=== PATIENT | male | born 1975 | race Hispanic/Latino ===

== ENCOUNTER 2017-09-15 13:40 | Emergency (ER) | payer BC, SELFPAY ==
--- OUTSIDE RECORDS SUMMARY | 2017-09-15 13:46 | XMS REPORT | Clinical Summary ---
:1975 Author Organization [facility] Address [address] [place] [address] Care Team Providers Name Role Phone Cherri Mehta DO Primary Care Provider Allergies No Known Allergies Current Medications Prescription Sig. Disp. Refills Start Date End Date Status metFORMIN (GLUCOPHAGE) Take 1 60 tablet 2 03/22/2017 Active 500 mg tablet (500 tabletIndications: Type mg total) 2 diabetes mellitus by mouth 2 without complication, (two) times without long-term a day with current use of insulin meals. lisinopril Take 1 90 tablet 2 03/22/2017 Active (PRINIVIL,ZESTRIL) 10 mg tablet (10 tabletIndications: mg total) Essential hypertension by mouth daily. metoprolol succinate XL Take 1 90 tablet 2 03/22/2017 Active (TOPROL-XL) 100 mg 24 hr tablet (100 tabletIndications: mg total) Essential hypertension by mouth daily. hydroCHLOROthiazide Take 1 90 tablet 2 03/22/2017 Active (HYDRODIURIL) 25 MG tablet (25 tabletIndications: mg total) Essential hypertension by mouth daily. fenofibrate (FENOGLIDE) Take 1 30 tablet 2 07/06/2017 Active 40 MG tabletIndications: tablet (40 Hypercholesteremia mg total) by mouth daily. lovastatin (MEVACOR) 20 Take 1 90 tablet 1 07/09/2017 Active MG tablet tablet (20 mg total) by mouth nightly. lisinopril Take 10 mg Discontinued (PRINIVIL,ZESTRIL) 10 mg by mouth 7 tablet daily. lovastatin (MEVACOR) 20 Take 20 mg Discontinued MG tablet by mouth 7 nightly. metFORMIN (GLUCOPHAGE) Take 500 mg Discontinued 500 mg tablet by mouth 2 7 (two) times a day with meals. hydroCHLOROthiazide Take 25 mg Discontinued (HYDRODIURIL) 25 MG by mouth 7 tablet daily. glipiZIDE (GLUCOTROL) 10 Take 10 mg Discontinued MG tablet by mouth 2 7 (two) times a day before meals. metoprolol succinate XL Take 100 mg Discontinued (TOPROL-XL) 100 mg 24 hr by mouth 7 tablet daily. lovastatin (MEVACOR) 20 Take 1 90 tablet 3 03/22/2017 Discontinued MG tabletIndications: tablet (20 7 Type 2 diabetes mellitus mg total) without complication, by mouth without long-term nightly. current use of insulin, Hypercholesteremia lovastatin (MEVACOR) 40 Take 1 90 tablet 1 03/28/2017 Discontinued MG tablet tablet (40 8 mg total) by mouth nightly. Active Problems Problem Noted Date Essential hypertension 06/29/2017 Type 2 diabetes mellitus without complication 03/22/2017 Hypercholesteremia 03/22/2017 Encounters Date Type Specialty Care Team Description 07/07/2017 Telephone Family Medicine Pac[place] Calvo 07/06/2017 Orders Only Family Medicine Cherri Mehta, Hypercholesteremia (Primary DO Dx) 07/06/2017 Orders Only Family Medicine Cherri Mehta, DO 06/29/2017 Lab Lab Cherri Mehta, Hypercholesteremia; DO Type 2 diabetes mellitus without complication, without long-term current use of insulin; Essential hypertension 06/29/2017 Office Visit Family Medicine Cherri Mehta, Type 2 diabetes mellitus without complication, without long-term current use of insulin ( Primary Dx); DO Hypercholesteremia; Essential hypertension 03/28/2017 Orders Only Family Medicine Cherri Mehta, DO 03/22/2017 Lab Lab Cherri Mehta, Type 2 diabetes mellitus without complication, without long-term current use of insulin; DO Essential hypertension; Hypercholesteremia 03/22/2017 Office Visit Family Medicine Cherri Mehta, Type 2 diabetes mellitus without complication, without long-term current use of insulin ( Primary Dx); DO Essential hypertension; Hypercholesteremia after 09/14/2016 Family History Medical History Relation Name Comments No Known Problems Father Hypertension Mother Relation Name Status Comments Father Alive Mother Alive Social History Tobacco Use Types Packs/Day Years Used Date Current Some Day Smoker Cigarettes Smokeless Tobacco: Never Used Comments: 1-2 cigs a month Alcohol Use Drinks/Week oz/Week Comments Yes pt goes through about a case of beer a month Sex Assigned at Date Recorded Not on file Last Filed Vital Signs Vital Sign Reading Time Taken Blood Pressure 136/88 06/29/2017 12:02 PM CDT Pulse 74 06/29/2017 12:02 PM CDT Temperature - - Respiratory Rate - - Oxygen Saturation 97% 06/29/2017 12:02 PM CDT Inhaled Oxygen Concentration - - Weight 101 kg (223 lb) 06/29/2017 12:02 PM CDT Height 165.1 cm (5' 5") 06/29/2017 12:02 PM CDT Body Mass Index 37.11 06/29/2017 12:02 PM CDT Plan of Treatment Date Type Specialty Care Team Description 10/28/2017 Office Visit Family Medicine Cherri Mehta DO [address] [place] [id number] Health Maintenance Due Date Last Done Comments INFLUENZA VACCINE 11/17/2017 DIABETIC FOOT EXAM 06/29/2018 06/29/2017, 06/29/2017 URINE MICROALBUMIN 06/29/2018 06/29/2017, 06/29/2017 DIABETIC RETINAL EYE EXAM 06/30/2019 06/29/2017, 06/29/2017 Procedures Procedure Name Priority Date/Time Associated Diagnosis Comments FUNDUS PHOTOS - OU Routine 06/29/2017 12:00 AM Results for this - BOTH EYES CDT procedure are in the results section. after 09/14/2016 Results Microalbumin / creatinine urine ratio (06/29/2017 12:50 PM) Component Value Ref Range Creatinine, urine, random 62.0 Not Estab. mg/dL Microalbumin, urine 3.2 Not Estab. ug/mL Microalbumin/creatinine ratio 5.2 0.0 - 30.0 mg/g creat Specimen Performing Laboratory Blood [facility] Narrative Performed at:01 - [facility] [id number] Armature Varnisher: Jimbo Seymour MD, Phone:[phone] Hemoglobin A1c (06/29/2017 12:50 PM)Only the most recent of2 resultswithin the time period is included. Component Value Ref Range Hemoglobin A1C 5.6 4.8 - 5.6 % Comment: Pre-diabetes: 5.7 - 6.4 Diabetes: >6.4 Glycemic control for adults with diabetes: <7.0 Specimen Performing Laboratory Blood [facility] Narrative Performed at:01 - [facility] [id number] Arm[employer] Varnisher: Jimbo Seymour MD, Phone:[phone] Lipid panel (06/29/2017 12:50 PM)Only the most recent of2 resultswithin the time period is included. Component Value Ref Range Cholesterol 207 (H) 100 - 199 mg/dL Triglycerides 519 (H) 0 - 149 mg/dL HDL cholesterol 37 (L) >39 mg/dL VLDL cholesterol polina Comment 5 - 40 mg/dL Comment: The calculation for the VLDL cholesterol is not valid when triglyceride level is >400 mg/dL. LDL cholesterol calculated Comment 0 - 99 mg/dL Comment: Triglyceride result indicated is too high for an accurate LDL cholesterol estimation. Non-HDL cholesterol 170 (H) 0 - 129 mg/dL Specimen Performing Laboratory Blood [facility] Narrative Performed at:01 - [facility] [id number] [employer] Varnisher: Jimbo Seymour MD, Phone:[phone] Comprehensive metabolic panel (06/29/2017 12:50 PM)Only the most recent of2 resultswithin the time period is included. Component Value Ref Range Glucose 93 65 - 99 mg/dL BUN, whole blood 14 6 - 24 mg/dL Creatinine 0.80 0.76 - 1.27 mg/dL EGFR Non-Afr. Guamanian 111 >59 mL/min/1.73 EGFR 128 >59 mL/min/1.73 BUN/creatinine ratio 18 9 - 20 Sodium 140 134 - 144 mmol/L Potassium 4.1 3.5 - 5.2 mmol/L Chloride 100 96 - 106 mmol/L CO2 25 18 - 29 mmol/L Calcium 9.8 8.7 - 10.2 mg/dL Protein 7.0 6.0 - 8.5 g/dL Albumin, S 4.5 3.5 - 5.5 g/dL Globulin, total 2.5 1.5 - 4.5 g/dL Albumin/globulin ratio 1.8 1.2 - 2.2 Total bilirubin 0.4 0.0 - 1.2 mg/dL Alkaline phosphatase 73 39 - 117 IU/L AST 46 (H) 0 - 40 IU/L ALT 56 (H) 0 - 44 IU/L Specimen Performing Laboratory Blood [facility] Narrative Performed at: - [id number] [place] Varnisher: Jimbo Seymour MD, Phone:[phone] Fundus Photos - OU - Both Eyes (06/29/2017)Thyroid stimulating hormone (2016 10:45 AM) Component Value Ref Range TSH 1.010 0.450 - 4.500 uIU/mL Specimen Performing Laboratory Blood [facility] Narrative Performed at: - [facility] [id number] Arm[employer] Varnisher: Jimbo Seymour MD, Phone:[phone] POC glucose (03/22/2017 10:02 AM) Component Value Ref Range POC glucose 100 65 - 100 Specimen Performing Laboratory Blood after 09/14/2016 Insurance Payer Benefit Plan / Group Subscriber ID Type Phone Address BCBS BCBS CHOICE PPO/FEDERAL EMPL PPO xxxxxxxxxxxx PPO Home: [address] [phone] [place] [id number]
--- NOTE | 2017-09-15 14:50 | RAD REPORT ---
EXAM DESCRIPTION: RAD - Chest Single View - 09/15/2017 2:45 pm CLINICAL HISTORY: Left-sided chest pain COMPARISON: August 2016 TECHNIQUE: AP portable chest image was obtained 1441 hour . FINDINGS: Lungs are clear. Heart and vasculature are normal. No measurable pleural effusion and no p neumothorax. No gross bony abnormality seen. No acute aortic findings suspected. IMPRESSION: No acute cardiopulmonary process. No significant interval change.
[2017-09-15 14:51] LABS: Absolute Lymphocytes (CBC) 1.9 K/uL (0.7-4.9); Absolute Monocytes 0.8 K/uL (0.1-1.3); Absolute Neutrophil 5.1 K/uL (1.8-8.0); Basophils % 0.8 % (0-1.3); Eosinophils % 1.4 % (0-4.4); Hematocrit 45.5 % (39.6-49.0); Lymphocytes % 24.2 % (15.3-44.8); MCH 29.9 pg (27.0-35.0); MCV 87.5 fL (80-100); MPV 8.4 fL (7.6-11.3); Monocytes % 9.5 % (3.3-12.3)
[2017-09-15 15:05] LABS: Protime INR 1.03
[2017-09-15 15:10] LABS: Potassium 3.7 mEq/L (3.6-5.0)
[2017-09-15 15:16] LABS: Albumin 4.5 g/dL (3.2-5.5); Bilirubin Direct 0.1 mg/dL (0-0.2); Bilirubin Total 0.7 mg/dL (0.3-1.2); Protein, Total 8.1 g/dL (6.0-8.3)
--- NOTE | 2017-09-15 15:47 | EKG ---
Test Date: 2017-09-15 Test Time: 14:07:34 Customer Support Manager: VIVIANA MEASUREMENT RESULTS: Intervals: Rate: 63 SC: 162 QRSD: 98 QT: 384 QTc: 392 Mcdermitt: P: 32 SC: 162 QRS: -28 T: 12 INTERPRETIVE STATEMENTS: Normal sinus rhythm Normal ECG Compared to ECG 08/26/2016 12:26:05 Sinus bradycardia no longer present Left-axis deviation no longer present Electronically Signed On 09-15-17 15:46:00 CDT by Tino Barkley
--- NOTE | 2017-09-15 16:41 | EDPHYS ---
Physician Documentation [facility] Name: Viktor Alatorre Sr Age: 41 yrs Sex: Male : 1975 Arrival Date: 09/15/2017 Time: 13:44 Bed 25 Private MD: None, None ED Physician David Linton HPI: 09/15 17:31 This 41 yrs old Male presents to ER via Ambulatory with complaints of Chest kdr Pain. 17:31 The patient or guardian reports chest pain that is located primarily in the anterior kdr chest wall, left. Onset: suddenly, 2 day(s) ago. The pain does not radiate. Associated signs and symptoms: The patient has no apparent associated signs or symptoms. The chest pain is described as sharp, pin pricks. Duration: The patient or guardian reports multiple episodes, that are intermittent, that wax and wane, with no pattern. Modifying factors: The symptoms are alleviated by nothing. the symptoms are aggravated by nothing. Severity of pain: At its worst the pain was mild in the emergency department the pain has resolved. The patient has not experienced similar symptoms in the past. The patient has not recently seen a physician. Historical: - Allergies: 13:55 No Known Allergies; aa5 - Home Meds: 13:55 Lisinopril Oral [Active]; Lovastatin Oral [Active]; Metformin Oral [Active]; aa5 Hydrochlorothiazide Oral [Active]; - PMHx: 13:55 Hypertension; Diabetes - NIDDM; aa5 - PSHx: 13:55 None; aa5 - Immunization history:: Adult Immunizations unknown. - Social history:: Smoking status: Patient/guardian denies using tobacco. - Ebola Screening: : No symptoms or risks identified at this time. ROS: 17:31 Constitutional: Negative for fever, chills, and weight loss, Eyes: Negative for injury, kdr pain, redness, and discharge, Neck: Negative for injury, pain, and swelling, Respiratory: Negative for shortness of breath, cough, wheezing, and pleuritic chest pain, Abdomen/GI: Negative for abdominal pain, nausea, vomiting, diarrhea, and constipation, Back: Negative for injury and pain, : Negative for injury, bleeding, discharge, and swelling, MS/Extremity: Negative for injury and deformity, Skin: Negative for injury, rash, and discoloration, Neuro: Negative for headache, weakness, numbness, tingling, and seizure activity. Psych: Negative for depression, anxiety, suicide ideation, homicidal ideation, and hallucinations, Allergy/Immunology: Negative for hives, rash, and allergies, Endocrine: Negative for neck swelling, polydipsia, polyuria, polyphagia, and marked weight changes, Hematologic/Lymphatic: Negative for swollen nodes, abnormal bleeding, and unusual bruising. 17:31 Cardiovascular: Positive for chest pain, Negative for edema, orthopnea, palpitations, paroxysmal nocturnal dyspnea, acute changes. Exam: 17:31 Constitutional: This is a well developed, well nourished patient who is awake, alert, kdr and in no acute distress. Head/Face: Normocephalic, atraumatic. Eyes: Pupils equal round and reactive to light, extra-ocular motions intact. Lids and lashes normal. Conjunctiva and sclera are non-icteric and not injected. Cornea within normal limits. Periorbital areas with no swelling, redness, or edema. Neck: Trachea midline, no thyromegaly or masses palpated, and no cervical lymphadenopathy. Supple, full range of motion without nuchal rigidity, or vertebral point tenderness. No Meningismus. Chest/axilla: Normal chest wall appearance and motion. Nontender with no deformity. No lesions are appreciated. Cardiovascular: Regular rate and rhythm with a normal S1 and S2. No gallops, murmurs, or rubs. Normal PMI, no JVD. No pulse deficits. Respiratory: Lungs have equal breath sounds bilaterally, clear to auscultation and percussion. No rales, rhonchi or wheezes noted. No increased work of breathing, no retractions or nasal flaring. Abdomen/GI: Soft, non-tender, with normal bowel sounds. No distension or tympany. No guarding or rebound. No evidence of tenderness throughout. Back: No spinal tenderness. No costovertebral tenderness. Full range of motion. Skin: Warm, dry with normal turgor. Normal color with no rashes, no lesions, and no evidence of cellulitis. MS/ Extremity: Pulses equal, no cyanosis. Neurovascular intact. Full, normal range of motion. Neuro: Awake and alert, GCS 15, oriented to person, place, time, and situation. Cranial nerves II-XII grossly intact. Motor strength 5/5 in all extremities. Sensory grossly intact. Cerebellar exam normal. Normal gait. Psych: Awake, alert, with orientation to person, place and time. Behavior, mood, and affect are within normal limits. Vital Signs: 13:55 BP 154 / 94; Pulse 76; Resp 16 S; Temp 98.6(O); Pulse Ox 97% on R/A; Weight 99.79 kg aa5 (R); Height 5 ft. 5 in. (165.10 cm) (R); Pain 4/10; 14:06 Pulse 67; Resp 18; Pulse Ox 97% ; tl3 14:58 BP 127 / 78; Pulse 66; Resp 16; Pulse Ox 95% on R/A; tl3 16:48 BP 128 / 82; Pulse 57; Resp 18; Pulse Ox 97% on R/A; tl3 13:55 Body Mass Index 36.61 (99.79 kg, 165.10 cm) aa5 MDM: 16:40 Patient medically screened. kdr 17:36 HEART Score: History: Slightly Suspicious (0), ECG: Normal (0), Age: < or = 45 years kdr (0), Risk Factors: No Risk Factors Known (0), Troponin: < or = 1 x Normal Limit (0). Data reviewed: vital signs, nurses notes, lab test result(s), radiologic studies. 09/15 14:14 Order name: Basic Metabolic Panel; Complete Time: 16:37 kdr 09/15 14:14 Order name: BNP; Complete Time: 16:37 kdr 09/15 14:14 Order name: CBC with Diff; Complete Time: 15:15 kdr 09/15 14:14 Order name: LFT's; Complete Time: 16:37 kdr 09/15 14:14 Order name: Magnesium; Complete Time: 16:37 kdr 09/15 14:14 Order name: PT-INR; Complete Time: 15:15 kdr 09/15 14:14 Order name: Ptt, Activated; Complete Time: 15:15 kdr 09/15 14:14 Order name: Troponin (emerg Dept Use Only); Complete Time: 16:37 kdr 09/15 14:14 Order name: XRAY Chest (1 view); Complete Time: 15:15 kdr 09/15 14:14 Order name: EKG; Complete Time: 14:14 kdr 09/15 14:14 Order name: Cardiac monitoring; Complete Time: 14:50 kdr 09/15 14:14 Order name: EKG - Nurse/Tech; Complete Time: 14:51 kdr 09/15 14:14 Order name: IV Saline Lock; Complete Time: 14:49 kdr 09/15 16:48 Order name: Urine Dipstick--Ancillary (enter results) ag 09/15 14:14 Order name: Labs collected and sent; Complete Time: 14:50 kdr 09/15 14:14 Order name: O2 Per Protocol; Complete Time: 14:50 kdr 09/15 14:14 Order name: O2 Sat Monitoring; Complete Time: 14:50 kdr Administered Medications: No medications were administered Disposition: 09/15/17 16:40 Discharged to Home. Impression: Chest pain, unspecified. - Condition is Fair. - Discharge Instructions: Nonspecific Chest Pain, [id number]. - Medication Reconciliation Form, Thank You Letter form. - Follow up: Private Physician; When: 2 - 3 days; Reason: If symptoms return, Further diagnostic work-up, Recheck today's complaints, Continuance of care, Re-evaluation by your physician. - Problem is new. - Symptoms have improved. Signatures: Dispatcher [employer] EDMS David Linton MD MD kdr Pushpa Rodriguez, RN RN aa5 Blanka Galindo RN RN tl3 Corrections: (The following items were deleted from the chart) 16:51 16:40 09/15/2017 16:40 Discharged to Home. Impression: Chest pain, unspecified. tl3 Condition is Fair. Forms are Medication Reconciliation Form, Thank You Letter, Antibiotic Education, Prescription Opioid Use. Follow up: Private Physician; When: 2 - 3 days; Reason: If symptoms return, Further diagnostic work-up, Recheck today's complaints, Continuance of care, Re-evaluation by your physician. Problem is new. Symptoms have improved. kdr 17:05 16:51 09/15/2017 16:40 Discharged to Home. Impression: Chest pain, unspecified. tl3 Condition is Fair. Discharge Instructions: Nonspecific Chest Pain, [id number]. Forms are Medication Reconciliation Form, Thank You Letter. Follow up: Private Physician; When: 2 - 3 days; Reason: If symptoms return, Further diagnostic work-up, Recheck today's complaints, Continuance of care, Re-evaluation by your physician. Problem is new. Symptoms have improved. tl3 17:36 17:31 Constitutional: Negative for fever, chills, and weight loss, Eyes: Negative for kdr injury, pain, redness, and discharge, Neck: Negative for injury, pain, and swelling, Respiratory: Negative for shortness of breath, cough, wheezing, and pleuritic chest pain, Abdomen/GI: Negative for abdominal pain, nausea, vomiting, diarrhea, and constipation, Back: Negative for injury and pain, : Negative for injury, bleeding, discharge, and swelling, MS/Extremity: Negative for injury and deformity, Skin: Negative for injury, rash, and discoloration, Neuro: Negative for headache, weakness, numbness, tingling, and seizure activity. Psych: Negative for depression, anxiety, suicide ideation, homicidal ideation, and hallucinations, Allergy/Immunology: Negative for hives, rash, and allergies, Endocrine: Negative for neck swelling, polydipsia, polyuria, polyphagia, and marked weight changes, Hematologic/Lymphatic: Negative for swollen nodes, abnormal bleeding, and unusual bruising, kdr
--- NOTE | 2017-09-15 16:41 | ER ---
Nurse's Notes [facility] Name: Viktor Alatorre Sr Age: 41 yrs Sex: Male : 1975 Arrival Date: 09/15/2017 Time: 13:44 Bed 25 Private MD: None, None Diagnosis: Chest pain, unspecified Presentation: 09/15 13:49 Presenting complaint: Patient states: episodic left-sided chest pain lasting a few aa5 seconds that began yesterday. Pt denies other symptoms. 13:49 Transition of care: patient was not received from another setting of care. Onset of aa5 symptoms was August 2017. Risk Assessment: Do you want to hurt yourself or someone else? Patient reports no desire to harm self or others. Initial Sepsis Screen: Does the patient meet any 2 criteria? No. Patient's initial sepsis screen is negative. Does the patient have a suspected source of infection? No. Patient's initial sepsis screen is negative. Care prior to arrival: None. 13:49 Method Of Arrival: Ambulatory aa5 13:49 Acuity: MITCH 3 aa5 Historical: - Allergies: 13:55 No Known Allergies; aa5 - Home Meds: 13:55 Lisinopril Oral [Active]; Lovastatin Oral [Active]; Metformin Oral [Active]; aa5 Hydrochlorothiazide Oral [Active]; - PMHx: 13:55 Hypertension; Diabetes - NIDDM; aa5 - PSHx: 13:55 None; aa5 - Immunization history:: Adult Immunizations unknown. - Social history:: Smoking status: Patient/guardian denies using tobacco. - Ebola Screening: : No symptoms or risks identified at this time. Screenin:06 Abuse screen: Denies threats or abuse. Nutritional screening: No deficits noted. tl3 Tuberculosis screening: No symptoms or risk factors identified. Fall Risk None identified. Assessment: 14:06 General: Appears in no apparent distress. comfortable, well groomed, unkempt, well tl3 developed, Behavior is calm, cooperative, appropriate for age. Pain: Complains of pain in chest Pain does not radiate. Pain began intermittant. Neuro: Level of Consciousness is awake, alert, obeys commands, Oriented to person, place, time, situation, Appropriate for age. Cardiovascular: Heart tones S1 S2 Patient's skin is warm and dry. Respiratory: Airway is patent Respiratory effort is even, unlabored, Respiratory pattern is regular, symmetrical, Breath sounds are clear bilaterally. GI: No signs and/or symptoms were reported involving the gastrointestinal system. : No signs and/or symptoms were reported regarding the genitourinary system. EENT: No signs and/or symptoms were reported regarding the EENT system. 14:58 Reassessment: Patient appears in no apparent distress at this time. No changes from tl3 previously documented assessment. Patient and/or family updated on plan of care and expected duration. Pain level reassessed. Patient is alert, oriented x 3, equal unlabored respirations, skin warm/dry/pink. 16:48 Reassessment: Patient appears in no apparent distress at this time. No changes from tl3 previously documented assessment. Patient and/or family updated on plan of care and expected duration. Pain level reassessed. Patient is alert, oriented x 3, equal unlabored respirations, skin warm/dry/pink. Vital Signs: 13:55 BP 154 / 94; Pulse 76; Resp 16 S; Temp 98.6(O); Pulse Ox 97% on R/A; Weight 99.79 kg aa5 (R); Height 5 ft. 5 in. (165.10 cm) (R); Pain 4/10; 14:06 Pulse 67; Resp 18; Pulse Ox 97% ; tl3 14:58 BP 127 / 78; Pulse 66; Resp 16; Pulse Ox 95% on R/A; tl3 16:48 BP 128 / 82; Pulse 57; Resp 18; Pulse Ox 97% on R/A; tl3 13:55 Body Mass Index 36.61 (99.79 kg, 165.10 cm) aa5 ED Course: 13:44 Patient arrived in ED. mr 13:44 None, None is Private Physician. mr 13:50 Arm band placed on Patient placed in an exam room, on a stretcher. aa5 13:54 Triage completed. aa5 13:54 Blanka Galindo, RN is Primary Nurse. tl3 14:06 Patient has correct armband on for positive identification. Placed in gown. Bed in low tl3 position. Call light in reach. Side rails up X 1. skatesman on. Pulse ox on. NIBP on. 14:06 No provider procedures requiring assistance completed. Patient maintains SpO2 tl3 saturation greater than 95% on room air. 14:08 Rittger, David, MD is Attending Physician. kdr 14:15 EKG done, by motion study technician. reviewed by David Linton MD. at1 14:43 X-ray completed. Portable x-ray completed in exam room. Patient tolerated procedure kc2 well. 14:44 XRAY Chest (1 view) In Process Unspecified. EDMS 14:45 Initial lab(s) drawn, by me, sent to lab. Inserted saline lock: 20 gauge in left iw antecubital area, using aseptic technique. Blood collected. 16:48 IV discontinued, intact, bleeding controlled, No redness/swelling at site. Pressure tl3 dressing applied. 16:53 Primary Nurse role handed off by Blanka Galindo, RN tl3 16:55 Blanka Galindo, RN is Primary Nurse. tl3 Administered Medications: No medications were administered Outcome: 16:40 Discharge ordered by MD. kdr 16:48 Discharged to home ambulatory. tl3 16:48 Condition: stable 16:48 Discharge instructions given to patient, family, Instructed on discharge instructions, follow up and referral plans. medication usage, Demonstrated understanding of instructions, follow-up care, medications, stressed importance of BP control, and lowering Cholesterol levels, instructed to find PCP to help control disease process Prescriptions given X 1. 16:51 Patient left the ED. tl3 17:05 Patient left the ED. tl3 Signatures: Dispatcher [employer] EDTN David Linton MD MD kdr Kristine Frazier Irene, RN LAI Pushpa Rodriguez RN RN aa5 Jacquelyn navarro, medical laboratory specialist EKG Tat1 Bonnie Gunderson kc2 Blanka Galindo, RN RN tl3 Corrections: (The following items were deleted from the chart) 16:48 14:58 Reassessment: Patient appears in no apparent distress at this time. No changes tl3 from previously documented assessment. Patient and/or family updated on plan of care and expected duration. Pain level reassessed. Patient is alert/active/playful, equal unlabored respirations, skin warm/dry/pink. tl3 16:56 16:48 Reassessment: Natalie discussing POC tl3 tl3 16:57 16:48 BP 131 / 76; Pulse 76bpm; Resp 18bpm; Pulse Ox 97% RA; tl3 tl3
[2017-09-15 16:56] VITALS: TEMP 98.6
[2017-09-15 16:56] LABS: Urine Blood NEGATIVE (NEG); Urine Glucose NEGATIVE (NEG); Urine Protein NEGATIVE (NEG)
[2017-09-15 16:59] VITALS: O2SAT 97
[2017-09-15 17:13] VITALS: BP 128/82
== END 2017-09-15 17:05 | disposition home or self-care (01) ==
LOC: ER 13:40
DX: R07.9 Chest pain, unspecified (principal); I10 Essential (primary) hypertension; E11.9 Type 2 diabetes mellitus without complications
CPT/HCPCS: 36415; 71045; 80048; 80076; 81003; 83735; 83880; 84484; 85025; 85610; 85730; 93005; 99285

== ENCOUNTER 2019-01-05 08:59 | Emergency (ER) | payer SELFPAY ==
--- OUTSIDE RECORDS SUMMARY | 2019-01-05 09:02 | XMS REPORT | Clinical Summary ---
:1975 Author Organization [facility] Address [address] [place] [address] Care Team Providers Name Role Phone Cherri Mehta DO Primary Care Provider Allergies No Known Allergies Medications Medication Sig Dispensed Refills Start End Date Status Date fenofibrate (FENOGLIDE) Take 1 30 tablet 2 Active 40 MG tabletIndications: tablet (40 8 Hypercholesteremia mg total) by mouth daily. lovastatin (MEVACOR) 20 Take 1 90 tablet 1 Active MG tablet tablet (20 8 mg total) by mouth nightly. metoprolol succinate XL Take 1 30 tablet 2 Active (TOPROL-XL) 100 mg 24 hr tablet 8 tabletIndications: (100 mg Essential hypertension total) by mouth daily. lovastatin (MEVACOR) 20 TAKE ONE 90 tablet 1 Active MG tabletIndications: TABLET BY 8 Type 2 diabetes mellitus MOUTH ONCE without complication, DAILY without long-term (NIGHTLY) current use of insulin (HCC), Hypercholesteremia hydroCHLOROthiazide Take 1 14 tablet 0 Active (HYDRODIURIL) 25 MG tablet (25 9 tabletIndications: mg total) Essential hypertension by mouth daily. lisinopril Take 1 14 tablet 0 Active (PRINIVIL,ZESTRIL) 10 mg tablet (10 9 tabletIndications: mg total) Essential hypertension by mouth daily. metFORMIN (GLUCOPHAGE) Take 1 28 tablet 0 Active 500 mg tablet 9 tabletIndications: Type (500 mg 2 diabetes mellitus total) by without complication, mouth 2 without long-term (two) current use of insulin times a (HCC) day with meals. lisinopril Take 1 90 tablet 2 07/12/19 Discontinued (PRINIVIL,ZESTRIL) 10 mg tablet (10 7 19 (Reorder) tabletIndications: mg total) Essential hypertension by mouth daily. hydroCHLOROthiazide Take 1 90 tablet 2 07/12/19 Discontinued (HYDRODIURIL) 25 MG tablet (25 7 19 (Reorder) tabletIndications: mg total) Essential hypertension by mouth daily. metFORMIN (GLUCOPHAGE) Take 1 60 tablet 2 07/12/19 Discontinued 500 mg tablet 8 19 (Reorder) tabletIndications: Type (500 mg 2 diabetes mellitus total) by without complication, mouth 2 without long-term (two) current use of insulin times a (HCC) day with meals. metFORMIN (GLUCOPHAGE) Take 1 14 tablet 0 07/12/19 Discontinued 500 mg tablet 9 19 (Reorder) tabletIndications: Type (500 mg 2 diabetes mellitus total) by without complication, mouth 2 without long-term (two) current use of insulin times a (HCC) day with meals. Active Problems Problem Noted Date Essential hypertension 06/29/2017 Type 2 diabetes mellitus without complication 03/22/2017 Hypercholesteremia 03/22/2017 Encounters Date Type Specialty Care Team Description 07/08/2018 Refill Family Medicine Cherri Mehta, Essential hypertension; DO Type 2 diabetes mellitus without complication, without long-term current use of insulin ([facility]) 04/04/2018 Refill Family Medicine Cherri Mehta, Type 2 diabetes mellitus without complication, without long-term current use of insulin ([facility]); DO Hypercholesteremia after 01/04/2018 Family History Medical History Relation Name Comments [...] Assigned at Date Recorded Not on file Job Start Date Occupation Industry Not on file Not on file Not on file Travel History Travel Start Travel End No recent travel history available. Last Filed Vital Signs Not on file Plan of Treatment Health Maintenance Due Date Last Done Comments DIABETIC FOOT EXAM 06/29/2018 06/29/2017, 06/29/2017, 06/29/2017, Additional history exists URINE MICROALBUMIN 06/29/2018 06/29/2017, 06/29/2017 INFLUENZA VACCINE 11/17/2018 DIABETIC RETINAL EYE EXAM 06/30/2019 06/29/2017, 06/29/2017 Results Not on fileafter 01/04/2018 Advance Directives For more information, please contact: [phone] Type Date Recorded Patient Rda Explanation Advance Directives, Living Will and Medical Power of Padder Cushion
[2019-01-05 09:52] LABS: Absolute Lymphocytes (CBC) 2.3 K/uL (0.7-4.9); Basophils % 0.6 % (0-1.3); Hematocrit 42.7 % (39.6-49.0); Lymphocytes % 28.4 % (15.3-44.8); MPV 8.5 fL (7.6-11.3); RBC Red Blood Cell Count 4.79 M/uL (4.33-5.43)
[2019-01-05 09:53] LABS: Protime INR 0.99
--- NOTE | 2019-01-05 10:04 | RAD REPORT ---
EXAM DESCRIPTION: CT - Head Brain Wo Cont - 01/05/2019 9:53 am CLINICAL HISTORY: HEADACHE COMPARISON: No comparisons TECHNIQUE: All CT scans are performed using dose optimization technique as appropriate and may inclu de automated exposure control or mA/KV adjustment according to patient size. FINDINGS: No intracranial hemorrhage, hydrocephalus or extra-axial fluid collection.No areas of brai n edema or evidence of midline shift. Mild mucoperiosteal thickening of the left maxillary antrum is seen. The paranasal sinuses and mastoi ds otherwise clear. The calvarium is intact. IMPRESSION: No acute intracranial abnormality.
--- NOTE | 2019-01-05 10:07 | RAD REPORT ---
EXAM DESCRIPTION: RAD - Chest Single View - 01/05/2019 9:45 am CLINICAL HISTORY: CHEST PAIN Chest pain. COMPARISON: Chest Single View dated 09/15/2017; Chest Single View dated 08/26/2016; CHEST SINGLE VIEW dated 11/18/2010 FINDINGS: Portable technique limits examination quality. The lungs are grossly clear. The heart is normal in size. No displaced fractures. IMPRESSION: No acute intrathoracic process suspected.
[2019-01-05 10:47] LABS: ALT/SGPT 111 U/L (12-78); AST/SGOT 52 U/L (15-37); Albumin 4.1 g/dL (3.4-5.0); Alkaline Phosphatase 96 U/L (45-117); BUN Blood Urea Nitrogen 15 mg/dL (7-18); Bicarbonate 27 mmol/L (21-32); Bilirubin Direct < 0.1 mg/dL (0-0.2); Bilirubin Total 0.6 mg/dL (0.2-1.0); Glucose Level 114 mg/dL (74-106); Magnesium 2.2 mg/dL (1.8-2.4); NT PRO-BNP 21 pg/mL (<125); Potassium 3.8 mmol/L (3.5-5.1); Protein, Total 8.3 g/dL (6.4-8.2); Sodium Level 139 mmol/L (136-145); Troponin (Emerg Dept Use Only) < 0.02 ng/mL (0.0-0.045)
--- NOTE | 2019-01-05 11:10 | ER ---
Nurse's Notes [facility] Name: Viktor Alatorre Sr Age: 43 yrs Sex: Male : 1975 Arrival Date: 01/05/2019 Time: 09:03 Bed 2 Private MD: Diagnosis: Headache;Chest pain, unspecified Presentation: 01/05 09:16 Transition of care: patient was not received from another setting of care. Risk sv Assessment: Do you want to hurt yourself or someone else? Patient reports no desire to harm self or others. Initial Sepsis Screen: Does the patient meet any 2 criteria? No. Patient's initial sepsis screen is negative. Does the patient have a suspected source of infection? No. Patient's initial sepsis screen is negative. Care prior to arrival: None. 09:21 Presenting complaint: Patient states: headache and intermittent chest pain since iw Wednesday, chest pain feels like someone is poking his chest, lasts less than a minute. Onset of symptoms was January 02, 2019. 09:21 Method Of Arrival: Wheelchair iw 09:21 Acuity: MITCH 2 iw Historical: - Allergies: 09:30 No Known Allergies; iw - Home Meds: 09:30 hydrochlorothiazide 25 mg oral tab once daily [Active]; lisinopril 10 mg Oral tab 1 tab iw once daily [Active]; metformin 500 mg Oral tr24 1 tab once daily [Active]; metoprolol tartrate 25 mg Oral tab 1 tab once daily [Active]; - PMHx: 09:30 Diabetes - NIDDM; Hypertension; iw - PSHx: 09:30 None; iw - Immunization history:: Adult Immunizations up to date. - Social history:: Smoking status: Patient/guardian denies using tobacco. - Ebola Screening: : No symptoms or risks identified at this time. Screenin:16 Abuse screen: Denies threats or abuse. Denies injuries from another. Nutritional sv screening: No deficits noted. Tuberculosis screening: No symptoms or risk factors identified. Fall Risk None identified. Assessment: 09:15 General: Appears in no apparent distress. comfortable, well groomed, well developed, sv Behavior is calm, cooperative, appropriate for age. Pain: Complains of pain in scalp Pain does not radiate. Pain currently is 8 out of 10 on a pain scale. Quality of pain is described as sharp, Pain began wednesday Is intermittent. Neuro: Level of Consciousness is awake, alert, obeys commands, Oriented to person, place, time, situation, Moves all extremities. Full function Gait is steady, Speech is normal. Cardiovascular: Denies chest pain, Patient's skin is warm and dry. Pulses are 3+ in right radial artery and left radial artery Rhythm is sinus rhythm. Respiratory: Respiratory effort is even, unlabored, Respiratory pattern is regular, symmetrical. Derm: Skin is pink, warm \T\ dry. Musculoskeletal: Range of motion: intact in all extremities. 10:30 Reassessment: Patient appears in no apparent distress at this time. No changes from sv previously documented assessment. Patient and/or family updated on plan of care and expected duration. Pain level reassessed. Patient is alert, oriented x 3, equal unlabored respirations, skin warm/dry/pink. 12:26 Reassessment: Patient appears in no apparent distress at this time. No changes from sv previously documented assessment. Patient and/or family updated on plan of care and expected duration. Pain level reassessed. Patient is alert, oriented x 3, equal unlabored respirations, skin warm/dry/pink. Vital Signs: 09:15 BP 155 / 92; Pulse 74; Resp 12; Temp 98; Pulse Ox 100% ; Weight 97.52 kg; Height 5 ft. sv 5 in. (165.10 cm); Pain 8/10; 10:00 BP 130 / 79; Pulse 77; Resp 18; Pulse Ox 97% ; sv 10:41 BP 136 / 83; Pulse 65; Resp 22; Pulse Ox 96% ; sv 12:10 BP 130 / 77; Pulse 77; Resp 17; Pulse Ox 99% ; sv 09:15 Body Mass Index 35.78 (97.52 kg, 165.10 cm) sv ED Course: 09:03 Patient arrived in ED. am2 09:06 David Linton MD is Attending Physician. kdr 09:14 Leann Chandler, LAI is Primary Nurse. sv 09:15 Arm band placed on. sv 09:15 Patient has correct armband on for positive identification. Placed in gown. Bed in low sv position. Call light in reach. monitoring analyst on. Pulse ox on. NIBP on. Door closed. Head of bed elevated. 09:15 Initial lab(s) drawn, by me, sent to lab. Inserted saline lock: 20 gauge in right sv antecubital area, using aseptic technique. Blood collected. Flushed right antecubital with 5 ml normal saline. 09:15 Patient maintains SpO2 saturation greater than 95% on room air. sv 09:26 Triage completed. iw 09:26 EKG done, by door technician. reviewed by David Linton MD. at1 09:33 Awaiting lab results, Awaiting for x-ray. sv 09:33 ED physician to see patient. sv 09:36 Basic Metabolic Panel Sent. sv 09:36 CBC with Diff Sent. sv 09:36 LFT's Sent. sv 09:36 Magnesium Sent. sv 09:36 NT PRO-BNP Sent. sv 09:36 PT-INR Sent. sv 09:36 Troponin (emerg Dept Use Only) Sent. sv 09:39 X-ray(s) taken. sv 09:57 ESR Sent. sv 09:57 CPK Sent. sv 09:57 XRAY Chest (1 view) Sent. sv 10:14 XRAY Chest (1 view) In Process Unspecified. EDMS 12:26 No provider procedures requiring assistance completed. IV discontinued, intact, sv bleeding controlled, No redness/swelling at site. Pressure dressing applied. Administered Medications: 12:25 Drug: Tylenol 650 mg Route: PO; sv 12:27 Follow up: Response: No adverse reaction; Medication administered at discharge. sv Outcome: 11:08 Discharge ordered by . kdr 12:26 Discharged to home ambulatory, with friend. sv 12:26 Condition: stable 12:26 Discharge instructions given to patient, Instructed on discharge instructions, follow up and referral plans. Demonstrated understanding of instructions, follow-up care. 12:27 Patient left the ED. sv Signatures: Dispatcher [employer] EDMS Leann Chandler, David Ramey RN, MD MD kdr Meredith Drummond, RN RN iw Jacquelyn Malin, vp corporate partnerships EKG Tat1 Jacquelyn Perez am2 Corrections: (The following items were deleted from the chart) 09:30 09:15 BP 155 / 92; Pulse 74bpm; Resp 12bpm; Pulse Ox 100%; sv iw 09:36 09:15 BP 155 / 92; Pulse 74bpm; Resp 12bpm; Pulse Ox 100%; 97.52 kg; Height 5 ft. 5 sv in.; BMI: 35.7; Pain 8/10; iw
--- NOTE | 2019-01-05 11:11 | EDPHYS ---
Physician Documentation [facility] Name: Viktor Alatorre Sr Age: 43 yrs Sex: Male : 1975 Arrival Date: 01/05/2019 Time: 09:03 Bed 2 Private MD: ED Physician David Linton HPI: 01/05 12:45 This 43 yrs old Male presents to ER via Wheelchair with complaints of Chest kdr Pain > 30 y/o, Shortness Of Breath, Headache. 12:45 The patient states that for the past week, he has had intermittent SWEET that occur kdr throughout the day. The SWEET are transient lasting minutes to hours and area associated with focal but sporadic chest pain. The pain is shooting and occurs may occur anywhere over his head and chest. Since it has persisted, he has been concerned and wanted to get it checked out. He does not appear toxic or ill in any way at this time. Onset: The symptoms/episode began/occurred gradually, 1 week(s) ago. Severity of symptoms: At their worst the symptoms were mild just prior to arrival. The patient has experienced similar episodes in the past, multiple times, with the last episode occurring today's symptoms are similar, and the symptoms today are exactly the same. The patient has not recently seen a physician. Historical: - Allergies: 09:30 No Known Allergies; iw - Home Meds: 09:30 hydrochlorothiazide 25 mg oral tab once daily [Active]; lisinopril 10 mg Oral tab 1 tab iw once daily [Active]; metformin 500 mg Oral tr24 1 tab once daily [Active]; metoprolol tartrate 25 mg Oral tab 1 tab once daily [Active]; - PMHx: 09:30 Diabetes - NIDDM; Hypertension; iw - PSHx: 09:30 None; iw - Immunization history:: Adult Immunizations up to date. - Social history:: Smoking status: Patient/guardian denies using tobacco. - Ebola Screening: : No symptoms or risks identified at this time. ROS: 12:45 Constitutional: Negative for fever, chills, and weight loss, Eyes: Negative for injury, kdr pain, redness, and discharge, ENT: Negative for injury, pain, and discharge, Neck: Negative for injury, pain, and swelling, Respiratory: Negative for shortness of breath, cough, wheezing, and pleuritic chest pain, Abdomen/GI: Negative for abdominal pain, nausea, vomiting, diarrhea, and constipation, Back: Negative for injury and pain, : Negative for injury, bleeding, discharge, and swelling, MS/Extremity: Negative for injury and deformity, Skin: Negative for injury, rash, and discoloration, Neuro: Negative for weakness, numbness, tingling, and seizure activity. Psych: Negative for depression, anxiety, suicide ideation, homicidal ideation, and hallucinations, Allergy/Immunology: Negative for hives, rash, and allergies, Endocrine: Negative for neck swelling, polydipsia, polyuria, polyphagia, and marked weight changes, Hematologic/Lymphatic: Negative for swollen nodes, abnormal bleeding, and unusual bruising. 12:45 Constitutional: Negative for fever, chills, and weight loss. 12:45 Cardiovascular: Positive for chest pain, Negative for edema, orthopnea, palpitations, paroxysmal nocturnal dyspnea, acute changes. 12:45 Neuro: Positive for headache. Exam: 12:45 Constitutional: This is a well developed, well nourished patient who is awake, alert, kdr and in no acute distress. Head/Face: Normocephalic, atraumatic. Eyes: Pupils equal round and reactive to light, extra-ocular motions intact. Lids and lashes normal. Conjunctiva and sclera are non-icteric and not injected. Cornea within normal limits. Periorbital areas with no swelling, redness, or edema. Neck: Trachea midline, no thyromegaly or masses palpated, and no cervical lymphadenopathy. Supple, full range of motion without nuchal rigidity, or vertebral point tenderness. No Meningismus. Chest/axilla: Normal chest wall appearance and motion. Nontender with no deformity. No lesions are appreciated. Cardiovascular: Regular rate and rhythm with a normal S1 and S2. No gallops, murmurs, or rubs. Normal PMI, no JVD. No pulse deficits. Respiratory: Lungs have equal breath sounds bilaterally, clear to auscultation and percussion. No rales, rhonchi or wheezes noted. No increased work of breathing, no retractions or nasal flaring. Abdomen/GI: Soft, non-tender, with normal bowel sounds. No distension or tympany. No guarding or rebound. No evidence of tenderness throughout. Back: No spinal tenderness. No costovertebral tenderness. Full range of motion. Skin: Warm, dry with normal turgor. Normal color with no rashes, no lesions, and no evidence of cellulitis. MS/ Extremity: Pulses equal, no cyanosis. Neurovascular intact. Full, normal range of motion. Neuro: Awake and alert, GCS 15, oriented to person, place, time, and situation. Cranial nerves II-XII grossly intact. Motor strength 5/5 in all extremities. Sensory grossly intact. Cerebellar exam normal. Normal gait. Psych: Awake, alert, with orientation to person, place and time. Behavior, mood, and affect are within normal limits. Vital Signs: 09:15 BP 155 / 92; Pulse 74; Resp 12; Temp 98; Pulse Ox 100% ; Weight 97.52 kg; Height 5 ft. sv 5 in. (165.10 cm); Pain 8/10; 10:00 BP 130 / 79; Pulse 77; Resp 18; Pulse Ox 97% ; sv 10:41 BP 136 / 83; Pulse 65; Resp 22; Pulse Ox 96% ; sv 12:10 BP 130 / 77; Pulse 77; Resp 17; Pulse Ox 99% ; sv 09:15 Body Mass Index 35.78 (97.52 kg, 165.10 cm) sv MDM: 11:08 Patient medically screened. kdr 13:04 Data reviewed: vital signs, nurses notes, lab test result(s), radiologic studies. kdr Counseling: I had a detailed discussion with the patient and/or guardian regarding: the historical points, exam findings, and any diagnostic results supporting the discharge/admit diagnosis, lab results, radiology results, the need for outpatient follow up. 01/05 09:15 Order name: Basic Metabolic Panel; Complete Time: 11:05 01/05 09:15 Order name: CBC with Diff 01/05 09:15 Order name: LFT's; Complete Time: 11:05 01/05 09:15 Order name: Magnesium; Complete Time: 11:05 01/05 09:15 Order name: NT PRO-BNP; Complete Time: 11:05 01/05 09:15 Order name: PT-INR sv 01/05 09:15 Order name: Troponin (emerg Dept Use Only); Complete Time: 11:05 01/05 09:15 Order name: XRAY Chest (1 view) sv 01/05 09:15 Order name: EKG; Complete Time: 09:20 sv 01/05 09:43 Order name: CT Head Brain wo Cont kdr 01/05 09:43 Order name: CPK; Complete Time: 11:05 kdr 01/05 09:43 Order name: ESR; Complete Time: 11:05 kdr 01/05 11:50 Order name: CT EDMS 01/05 09:15 Order name: Cardiac monitoring; Complete Time: 09:15 sv 01/05 09:15 Order name: EKG - Nurse/Tech; Complete Time: 09:36 sv 01/05 09:15 Order name: IV Saline Lock; Complete Time: 09:15 sv 01/05 09:15 Order name: Labs collected and sent; Complete Time: 09:15 sv 01/05 09:15 Order name: O2 Per Protocol; Complete Time: 09:15 sv 01/05 09:15 Order name: O2 Sat Monitoring; Complete Time: 09:15 sv Administered Medications: 12:25 Drug: Tylenol 650 mg Route: PO; sv 12:27 Follow up: Response: No adverse reaction; Medication administered at discharge. sv Disposition: 01/05/19 11:08 Discharged to Home. Impression: Headache, Chest pain, unspecified. - Condition is Stable. - Discharge Instructions: General Headache Without Cause, Nonspecific Chest Pain, [id number]. - Medication Reconciliation Form, Thank You Letter form. - Follow up: Private Physician; When: 2 - 3 days; Reason: If symptoms return, Further diagnostic work-up, Recheck today's complaints, Continuance of care, Re-evaluation by your physician. - Problem is new. - Symptoms have improved. Signatures: Dispatcher [facility] Leann Chandler RN RN sv David Linton MD MD kdr Meredith Drummond RN RN iw Corrections: (The following items were deleted from the chart) 12:27 11:08 01/05/2019 11:08 Discharged to Home. Impression: Headache; Chest pain, sv unspecified. Condition is Stable. Forms are Medication Reconciliation Form, Thank You Letter, Antibiotic Education, Prescription Opioid Use. Follow up: Private Physician; When: 2 - 3 days; Reason: If symptoms return, Further diagnostic work-up, Recheck today's complaints, Continuance of care, Re-evaluation by your physician. Problem is new. Symptoms have improved. kdr
[2019-01-05] MEDS ORDERED: ACETAMINOPHEN 325 MG TABLET ONE (12:23)
[2019-01-05 15:44] VITALS: TEMP 98
[2019-01-05 15:51] VITALS: BP 136/83; O2SAT 96
--- NOTE | 2019-01-06 10:35 | EKG ---
Test Date: 2019-01-05 Test Time: 09:20:04 Ship'S Surveyor: VIVIANA MEASUREMENT RESULTS: Intervals: Rate: 75 [place]: 156 QRSD: 84 QT: 366 QTc: 408 [place]: P: 48 [place]: 156 QRS: -10 T: 30 INTERPRETIVE STATEMENTS: Normal sinus rhythm Normal ECG Compared to ECG 09/15/2017 14:07:34 No significant changes Electronically Signed On 01-06-19 10:31:57 CDT by Deng Aguilar
== END 2019-01-05 12:27 | disposition home or self-care (01) ==
LOC: ER 08:59
DX: R07.9 Chest pain, unspecified (principal); R51 Headache; I10 Essential (primary) hypertension; E11.9 Type 2 diabetes mellitus without complications
CPT/HCPCS: 36415; 70450; 71045; 80048; 80076; 82550; 83735; 83880; 84484; 85025; 85610; 85652; 93005; 99285

== ENCOUNTER 2020-02-17 12:58 | Observation (INO) | payer OTHER, SELFPAY ==
--- OUTSIDE RECORDS SUMMARY | 2020-02-17 13:00 | XMS REPORT | Clinical Summary ---
:1975 Author Organization [facility] Address [address] [place] [address] Care Team Providers Name Role Phone Aurora Mehta DO Primary Care Provider Allergies No Known Active Allergies Medications Medication Sig Dispensed Refills Start Date End Date Status fenofibrate (FENOGLIDE) 40 Take 1 tablet 30 tablet 2 8 Active MG tabletIndications: (40 mg total) Hypercholesteremia by mouth daily. lovastatin (MEVACOR) 20 MG Take 1 tablet 90 tablet 1 8 Active tablet (20 mg total) by mouth nightly. metoprolol succinate XL Take 1 tablet 30 tablet 2 12/09/2017 Active (TOPROL-XL) 100 mg 24 hr (100 mg tabletIndications: total) by Essential hypertension mouth daily. lovastatin (MEVACOR) 20 MG TAKE ONE 90 tablet 1 04/04/2018 Active tabletIndications: Type 2 TABLET BY diabetes mellitus without MOUTH ONCE complication, without DAILY long-term current use of (NIGHTLY) insulin (HCC), Hypercholesteremia hydroCHLOROthiazide Take 1 tablet 14 tablet 0 07/11/2018 Active (HYDRODIURIL) 25 MG (25 mg total) tabletIndications: by mouth Essential hypertension daily. lisinopril Take 1 tablet 14 tablet 0 07/11/2018 Acti ve (PRINIVIL,ZESTRIL) 10 mg (10 mg total) tabletIndications: by mouth Essential hypertension daily. metFORMIN (GLUCOPHAGE) 500 Take 1 tablet 28 tablet 0 9 Active mg tabletIndications: Type (500 mg 2 diabetes mellitus without total) by complication, without mouth 2 (two) long-term current use of times a day insulin (HCC) with meals. Active Problems Problem Noted Date Essential hypertension 06/29/2017 Type 2 diabetes mellitus without complication 03/22/20 17 Hypercholesteremia 03/22/2017 Family History Medical History Relation Name Comments [...] Not on file Last Filed Vital Signs Not on file Plan of Treatment Health Maintenance Due Date Last Done Comments DIABETIC FOOT EXAM 06/29/2018 06/29/2017, 06/29/2017, 06/29 URINE MICROALBUMIN 06/29/2018 06/29/2017, 06/29/2017 DIABETES: RETINAL EYE EXAM 06/30/2019 06/29/2017, 8 INFLUENZA VACCINE 11/18/2019 Results Not on fileafter 02/16/2019 Advance Directives For more information, please contact: [phone] Type Date Recorded Patient Transfill Technician Explanati on Advance Directives, Living Will and Medical Power of Gas Or Water Meter Installer
[2020-02-17 13:48] LABS: Absolute Lymphocytes (CBC) 2.2 K/uL (0.7-4.9); Basophils % 1.2 % (0-1.3); Hematocrit 46.2 % (39.6-49.0); Lymphocytes % 27.6 % (15.3-44.8); MPV 8.7 fL (7.6-11.3); RBC Red Blood Cell Count 5.28 M/uL (4.33-5.43)
[2020-02-17] MEDS ORDERED: ASPIRIN 81 MG CHEWABLE TABLET ONE (13:53)
[2020-02-17 14:06] LABS: ALT/SGPT 109 U/L (12-78); AST/SGOT 51 U/L (15-37); Albumin 3.9 g/dL (3.4-5.0); Alkaline Phosphatase 93 U/L (45-117); BUN Blood Urea Nitrogen 16 mg/dL (7-18); Bicarbonate 27 mmol/L (21-32); Bilirubin Direct 0.1 mg/dL (0-0.2); Bilirubin Total 0.7 mg/dL (0.2-1.0); Glucose Level 118 mg/dL (74-106); Lipase 267 U/L (73-393); Magnesium 2.2 mg/dL (1.8-2.4); NT PRO-BNP 12 pg/mL (<125); Potassium 3.9 mmol/L (3.5-5.1); Protein, Total 8.2 g/dL (6.4-8.2); Sodium Level 139 mmol/L (136-145); Troponin (Emerg Dept Use Only) < 0.02 ng/mL (0.0-0.045)
--- NOTE | 2020-02-17 14:21 | EDPHYS ---
Physician Documentation [facility] Name: Viktor Alatorre Sr Age: 44 yrs Sex: Male : 1975 Arrival Date: 02/17/2020 Time: 13:00 Bed 17 Private MD: ED Physician Osvaldo Jorge HPI: 02/16 13:09 This 44 yrs old Male presents to ER via Unassigned with complaints of Chest jihan Pain. 14:15 The patient or guardian reports chest pain that is located primarily in the anterior jihan chest wall, bilaterally. Onset: just prior to arrival, this morning. The pain does not radiate. Associated signs and symptoms: The patient has no apparent associated signs or symptoms. The chest pain is described as a heaviness, a pressure. Modifying factors: The symptoms are alleviated by nothing. the symptoms are aggravated by nothing. Severity of pain: At its worst the pain was mild moderate in the emergency department the pain has improved moderately. The patient has not experienced similar symptoms in the past. Historical: - Allergies: 13:23 No Known Allergies; jd3 - Home Meds: 13:23 lisinopril-hydrochlorothiazide oral oral [Active]; Lovastatin Oral [Active]; Metformin jd3 Oral [Active]; metoprolol tartrate 25 mg Oral tab 1 tab once daily [Active]; - PMHx: 13:23 Diabetes - NIDDM; Hypertension; High Cholesterol; jd3 - PSHx: 13:23 None; jd3 - Immunization history:: Adult Immunizations up to date. - Social history:: Smoking status: Patient denies any tobacco usage or history of. - Family history:: not pertinent. ROS: 14:15 Constitutional: Negative for fever, chills, and weight loss, Eyes: Negative for injury, jihan pain, redness, and discharge, ENT: Negative for injury, pain, and discharge, Neck: Negative for injury, pain, and swelling, Respiratory: Negative for shortness of breath, cough, wheezing, and pleuritic chest pain, Abdomen/GI: Negative for abdominal pain, nausea, vomiting, diarrhea, and constipation, Back: Negative for injury and pain, : Negative for injury, bleeding, discharge, and swelling, MS/Extremity: Negative for injury and deformity, Skin: Negative for injury, rash, and discoloration, Neuro: Negative for headache, weakness, numbness, tingling, and seizure, Psych: Negative for depression, anxiety, suicide ideation, homicidal ideation, and hallucinations, Allergy/Immunology: Negative for hives, rash, and allergies, Endocrine: Negative for neck swelling, polydipsia, polyuria, polyphagia, and marked weight changes, Hematologic/Lymphatic: Negative for swollen nodes, abnormal bleeding, and unusual bruising. 14:15 Cardiovascular: Positive for edema. Exam: 14:15 Constitutional: This is a well developed, well nourished patient who is awake, alert, jihan and in no acute distress. Head/Face: Normocephalic, atraumatic. Eyes: Pupils equal round and reactive to light, extra-ocular motions intact. Lids and lashes normal. Conjunctiva and sclera are non-icteric and not injected. Cornea within normal limits. Periorbital areas with no swelling, redness, or edema. ENT: Nares patent. No nasal discharge, no septal abnormalities noted. Tympanic membranes are normal and external auditory canals are clear. Oropharynx with no redness, swelling, or masses, exudates, or evidence of obstruction, uvula midline. Mucous membranes moist. Neck: Trachea midline, no thyromegaly or masses palpated, and no cervical lymphadenopathy. Supple, full range of motion without nuchal rigidity, or vertebral point tenderness. No Meningismus. Chest/axilla: Normal chest wall appearance and motion. Nontender with no deformity. No lesions are appreciated. Cardiovascular: Regular rate and rhythm with a normal S1 and S2. No gallops, murmurs, or rubs. Normal PMI, no JVD. No pulse deficits. Respiratory: Lungs have equal breath sounds bilaterally, clear to auscultation and percussion. No rales, rhonchi or wheezes noted. No increased work of breathing, no retractions or nasal flaring. Abdomen/GI: Soft, non-tender, with normal bowel sounds. No distension or tympany. No guarding or rebound. No evidence of tenderness throughout. Back: No spinal tenderness. No costovertebral tenderness. Full range of motion. Male : Normal genitalia with no discharge or lesions. Skin: Warm, dry with normal turgor. Normal color with no rashes, no lesions, and no evidence of cellulitis. MS/ Extremity: Pulses equal, no cyanosis. Neurovascular intact. Full, normal range of motion. Neuro: Awake and alert, GCS 15, oriented to person, place, time, and situation. Cranial nerves II-XII grossly intact. Motor strength 5/5 in all extremities. Sensory grossly intact. Cerebellar exam normal. Normal gait. Psych: Awake, alert, with orientation to person, place and time. Behavior, mood, and affect are within normal limits. 14:15 Musculoskeletal/extremity: DVT Exam: No signs of deep vein thrombosis. no pain, no swelling, no tenderness, negative Homans' sign noted on exam, no appreciated bluish discoloration, no erythema, no increased warmth. 14:20 ECG was reviewed by the Attending Physician. [facility] Vital Signs: 13:18 BP 134 / 83; Pulse 89; Resp 16; Temp 97.6(TE); Pulse Ox 98% ; Weight 102.97 kg; Height mh5 5 ft. 5 in. (165.10 cm); Pain 6/10; 14:11 BP 130 / 79; Pulse 86; Resp 17 S; Pulse Ox 99% on R/A; jd3 15:05 BP 127 / 73; Pulse 67; Resp 19 S; Pulse Ox 97% on R/A; jd3 16:31 BP 138 / 87; Pulse 72; Resp 16 S; Pulse Ox 98% on R/A; jd3 13:18 Body Mass Index 37.77 (102.97 kg, 165.10 cm) 5 MDM: 13:07 Patient medically screened. jihan 14:17 Differential diagnosis: abnormal EKG, acute myocardial infarction, acute pericarditis, jihan coronary artery disease chest wall pain, congestive heart failure costochondritis, esophagitis, hiatal hernia, pneumonia, pulmonary embolus, stable angina, unstable angina. HEART Score: History: Moderately Suspicious (1), ECG: Non specific repolarization disturbance / LBTB / PM (1), Age: < or = 45 years (0), Risk Factors: > or = 3 Risk factors for atherosclerotic disease (2), [Hypercholesterolemia] [Hypertension] [DM] [+ Family HX] [Obesity] Troponin: < or = 1 x Normal Limit (0). The patient was given aspirin in the Emergency Department. The patient's deep vein thrombosis risk score was calculated as follows: Total Score: 0. This patient was found to be at low risk for a deep vein thrombosis by using the Well's assessment criteria. The patient's pulmonary embolism risk score was calculated as follows: Total Score: 0-2 points. This patient was found to be at low risk for a pulmonary embolism by using the Well's assessment criteria. KIMBERLEY Risk Score: TOTAL SCORE = 0. Data reviewed: vital signs, nurses notes, lab test result(s), EKG, radiologic studies, plain films. 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 Test interpretation: by ED physician or midlevel provider: ECG, plain radiologic studies. Counseling: I had a detailed discussion with the patient and/or guardian regarding: the historical points, exam findings, and any diagnostic results supporting the discharge/admit diagnosis, the presence of at least one elevated blood pressure reading (>120/80) during this emergency department visit, lab results, radiology results. 02/16 13:09 Order name: UDS [facility] 02/16 13:42 Order name: Basic Metabolic Panel; Complete Time: 14:13 [facility] 02/16 13:42 Order name: Liver (Hepatic) Function; Complete Time: 14:13 [facility] 02/16 13:42 Order name: Troponin (Emerg Dept Use Only); Complete Time: 14:13 [facility] 02/16 13:42 Order name: NT PRO-BNP; Complete Time: 14:13 [facility] 02/16 13:42 Order name: Magnesium; Complete Time: 14:13 [facility] 02/16 13:42 Order name: Lipase; Complete Time: 14:13 [facility] 02/16 13:09 Order name: EKG; Complete Time: 14:42 [facility] 02/16 13:09 Order name: Cardiac monitoring; Complete Time: 13:15 [facility] 02/16 13:09 Order name: EKG - Nurse/Tech; Complete Time: 13:16 [facility] 02/16 13:09 Order name: IV Saline Lock; Complete Time: 13:41 [facility] 02/16 13:09 Order name: Labs collected and sent; Complete Time: 13:41 [facility] 02/16 13:09 Order name: O2 Per Protocol; Complete Time: 13:16 [facility] 02/16 13:18 Order name: Chest Single View; Complete Time: 15:18 [facility] 02/16 13:42 Order name: CBC with Automated Diff; Complete Time: 14:13 [facility] 02/16 14:12 Order name: D-Dimer; Complete Time: 15:18 [facility] 02/16 14:31 Order name: Urine Drug Screen; Complete Time: 15:18 [facility] 02/16 14:34 Order name: Urine Dipstick--Ancillary (enter results) em1 02/16 13:09 Order name: O2 Sat Monitoring; Complete Time: 13:16 [facility] 02/16 13:09 Order name: Urine Dipstick-Ancillary (obtain specimen); Complete Time: 14:26 [facility] EC:20 Rate is 87 beats/min. Rhythm is regular. QRS [place] is Normal. AR interval is normal. QRS jihan interval is normal. QT interval is normal. No Q waves. T waves are Normal. No ST changes noted. Clinical impression: NSR w/ Non-specific ST/T Changes and No evidence of ischemia. Interpreted by me. Reviewed by me. Administered Medications: 13:41 Drug: Aspirin Chewable Tablet 324 mg Route: PO; jd3 14:26 Follow up: Response: No adverse reaction jd3 15:04 Drug: Lopressor 25 mg Route: PO; jd3 16:00 Follow up: Response: No adverse reaction jd3 15:04 Drug: Lovenox 100 mg Route: Sub-Q; Site: abdomen; jd3 16:00 Follow up: Response: No adverse reaction jd3 15:04 Drug: Pepcid 20 mg Route: IVP; Site: right antecubital; jd3 16:00 Follow up: Response: No adverse reaction jd3 Disposition: 02/17/20 14:20 Hospitalization ordered by Adiel Sharif for Observation. Preliminary diagnosis are Chest pain, unspecified, Type 2 diabetes mellitus, Essential (primary) hypertension. - Bed requested for Telemetry/MedSurg (observation). - Status is Observation. jd3 - Condition is Stable. - Problem is new. - Symptoms have improved. Signatures: Dispatcher [employer] EDMS Osvaldo Jorge MD MD cha Martinez, Eric em1 Gordy Luna RN RN jd3 Corrections: (The following items were deleted from the chart) 14:57 14:42 BASIC METABOLIC PANEL+C.LAB.BRZ ordered. EDMS EDMS 14:57 14:42 CBC+H.LAB.BRZ ordered. EDMS EDMS 14:57 14:42 HEPATIC FUNCTION+C.LAB.BRZ ordered. EDMS EDMS 14:57 14:42 MAGNESIUM+C.LAB.BRZ ordered. EDMS EDMS 14:57 14:42 PROBNP+C.LAB.BRZ ordered. EDMS EDMS 14:57 14:42 TROPONIN (EMERG DEPT USE ONLY)+C.LAB.BRZ ordered. EDMS EDMS 14:57 14:42 LIPASE+C.LAB.BRZ ordered. EDMS EDMS 14:57 14:42 Chest Single View+RAD.RAD.BRZ ordered. EDMS EDMS 16:01 14:20 Hospitalization Ordered by Adiel Sharif DO for Observation. Preliminary em1 diagnosis is Chest pain, unspecified; Type 2 diabetes mellitus; Essential (primary) hypertension. Bed requested for Telemetry/MedSurg (observation). Status is Observation. Condition is Stable. Problem is new. Symptoms have improved. jihan 17:19 16:01 02/17/2020 14:20 Hospitalization Ordered by Adiel Sharif DO for Observation. jd3 Preliminary diagnosis is Chest pain, unspecified; Type 2 diabetes mellitus; Essential (primary) hypertension. Bed requested for Telemetry/MedSurg (observation). Status is Observation. Condition is Stable. Problem is new. Symptoms have improved. em1
--- NOTE | 2020-02-17 14:21 | ER ---
Nurse's Notes [facility] Name: Viktor Alatorre Sr Age: 44 yrs Sex: Male : 1975 Arrival Date: 02/17/2020 Time: 13:00 Bed 17 [facility] MD: Diagnosis: Chest pain, unspecified;Type 2 diabetes mellitus;Essential (primary) hypertension Presentation: 02/16 13:21 Chief complaint: Patient states: "I have been having this chest pain for about a week jd3 now.". Coronavirus screen: At this time, the client does not indicate any symptoms associated with coronavirus-19. Ebola Screen: Patient negative for fever greater than or equal to 101.5 degrees Fahrenheit, and additional compatible Ebola Virus Disease symptoms. Initial Sepsis Screen: Does the patient meet any 2 criteria? No. Patient's initial sepsis screen is negative. Does the patient have a suspected source of infection? No. Patient's initial sepsis screen is negative. Risk Assessment: Do you want to hurt yourself or someone else? Patient reports no desire to harm self or others. Onset of symptoms was February 10, 2020. 13:21 Method Of Arrival: Ambulatory jd3 13:21 Acuity: MITCH 3 jd3 Historical: - Allergies: 13:23 No Known Allergies; jd3 - Home Meds: 13:23 lisinopril-hydrochlorothiazide oral oral [Active]; Lovastatin Oral [Active]; Metformin jd3 Oral [Active]; metoprolol tartrate 25 mg Oral tab 1 tab once daily [Active]; - PMHx: 13:23 Diabetes - NIDDM; Hypertension; High Cholesterol; jd3 - PSHx: 13:23 None; jd3 - Immunization history:: Adult Immunizations up to date. - Social history:: Smoking status: Patient denies any tobacco usage or history of. - Family history:: not pertinent. Screenin:25 Abuse screen: Denies threats or abuse. Nutritional screening: No deficits noted. jd3 Tuberculosis screening: No symptoms or risk factors identified. Fall Risk Ambulatory Aid- None/Bed Rest/Nurse Assist (0 pts). Gait- Normal/Bed Rest/Wheelchair (0 pts) Mental Status- Oriented to own ability (0 pts). Total Kitchen Fall Scale indicates No Risk (0-24 pts). Assessment: 13:24 General: Appears in no apparent distress. comfortable, Behavior is calm, cooperative, jd3 appropriate for age. Pain: Complains of pain in chest Pain does not radiate. Quality of pain is described as pressure, Pain began gradually. Neuro: Level of Consciousness is awake, alert, obeys commands, Oriented to person, place, time, situation. Cardiovascular: Capillary refill < 3 seconds Patient's skin is warm and dry. Rhythm is regular. Respiratory: Reports shortness of breath on exertion Airway is patent Respiratory effort is even, unlabored, Respiratory pattern is regular, symmetrical. GI: No signs and/or symptoms were reported involving the gastrointestinal system. : No signs and/or symptoms were reported regarding the genitourinary system. EENT: No signs and/or symptoms were reported regarding the EENT system. Derm: Skin is intact, Skin is dry, Skin is normal, Skin temperature is warm. Musculoskeletal: Circulation, motion, and sensation intact. Range of motion: intact in all extremities. 14:10 Reassessment: Patient appears in no apparent distress at this time. No changes from jd3 previously documented assessment. Patient and/or family updated on plan of care and expected duration. Pain level reassessed. Patient is alert, oriented x 3, equal unlabored respirations, skin warm/dry/pink. 15:04 Reassessment: Patient appears in no apparent distress at this time. Patient and/or jd3 family updated on plan of care and expected duration. Pain level reassessed. Patient is alert, oriented x 3, equal unlabored respirations, skin warm/dry/pink. awaiting admission. 16:31 Reassessment: Patient appears in no apparent distress at this time. No changes from jd3 previously documented assessment. Patient and/or family updated on plan of care and expected duration. Pain level reassessed. Patient is alert, oriented x 3, equal unlabored respirations, skin warm/dry/pink. 17:19 Reassessment: Patient appears in no apparent distress at this time. Patient and/or jd3 family updated on plan of care and expected duration. Pain level reassessed. Patient is alert, oriented x 3, equal unlabored respirations, skin warm/dry/pink. Vital Signs: 13:18 BP 134 / 83; Pulse 89; Resp 16; Temp 97.6(TE); Pulse Ox 98% ; Weight 102.97 kg; Height mh5 5 ft. 5 in. (165.10 cm); Pain 6/10; 14:11 BP 130 / 79; Pulse 86; Resp 17 S; Pulse Ox 99% on R/A; jd3 15:05 BP 127 / 73; Pulse 67; Resp 19 S; Pulse Ox 97% on R/A; jd3 16:31 BP 138 / 87; Pulse 72; Resp 16 S; Pulse Ox 98% on R/A; jd3 13:18 Body Mass Index 37.77 (102.97 kg, 165.10 cm) [facility] ED Course: 13:00 Patient arrived in ED. as 13:07 Osvaldo Jorge MD is Attending Physician. jihan 13:15 Gordy Luna, LAI is Primary Nurse. jd3 13:21 Patient has correct armband on for positive identification. Placed in gown. Bed in low mh5 position. Adult w/ patient. investment executive on. Pulse ox on. NIBP on. 13:21 EKG done, by ED staff, reviewed by Osvaldo Jorge MD. [facility] 13:22 Triage completed. jd3 13:25 Arm band placed on. jd3 13:25 Patient maintains SpO2 saturation greater than 95% on room air. jd3 13:49 Inserted saline lock: 20 gauge in right antecubital area, using aseptic technique. ae4 Blood collected. 14:14 Chest Single View In Process Unspecified. EDMS 14:19 Adiel Sharif DO is Hospitalizing Provider. jihan 17:00 No provider procedures requiring assistance completed. Patient admitted, IV remains in jd3 place. Administered Medications: 13:41 Drug: Aspirin Chewable Tablet 324 mg Route: PO; jd3 14:26 Follow up: Response: No adverse reaction jd3 15:04 Drug: Lopressor 25 mg Route: PO; jd3 16:00 Follow up: Response: No adverse reaction jd3 15:04 Drug: Lovenox 100 mg Route: Sub-Q; Site: abdomen; jd3 16:00 Follow up: Response: No adverse reaction jd3 15:04 Drug: Pepcid 20 mg Route: IVP; Site: right antecubital; jd3 16:00 Follow up: Response: No adverse reaction jd3 Outcome: 14:20 Decision to Hospitalize by Provider. jihan 17:01 Condition: stable jd3 17:01 Instructed on the need for admit, Demonstrated understanding of instructions. 17:18 Admitted to Med/surg accompanied by tech, via wheelchair, room 212, with chart, Report jd3 called to Loly HOYT 17:19 Patient left the ED. jd3 Signatures: Dispatcher [employer] Osvaldo Polanco MD MD cha Martinez, Kristine Sotelo [facility] Gordy Luna RN RN jd3 Kojo Ibrahim RN RN ae4
[2020-02-17 14:43] LABS: Barbiturates NEGATIVE (NEGATIVE); Benzodiazepines NEGATIVE (NEGATIVE); Cocaine NEGATIVE (NEGATIVE); METHAMPHETAM NEGATIVE (NEGATIVE); Methadone NEGATIVE (NEGATIVE); Opiates NEGATIVE (NEGATIVE); Phencyclidine NEGATIVE (NEGATIVE); THC Cannibis NEGATIVE (NEGATIVE)
--- NOTE | 2020-02-17 14:55 | RAD REPORT ---
EXAM DESCRIPTION: [place] Single View02/17/2020 2:14 pm CLINICAL HISTORY: cough COMPARISON: 2018 FINDINGS: The lungs appear clear of acute infiltrate. The heart is normal size IMPRESSION: No acute abnormalities displayed
[2020-02-17] MEDS ORDERED: ENOXAPARIN 100 MG/ML SYR SQ ONE (15:03)
--- NOTE | 2020-02-17 15:03 | P.HP ---
Certification for Inpatient Patient admitted to: Observation With expected LOS: <2 Midnights Patient will require the following post-hospital care: None Practitioner: I am a practitioner with admitting privileges, knowledge of patient current condition, hospital course, and medical plan of care. Services: Services provided to patient in accordance with Admission requirements found in Title 42 Section 412.3 of the Code of Federal Regulations Patient History Date of Service: 02/17/20 Primary Care Provider: Go Foster; Cardiology-Dr. Aguilar Reason for admission: Chest pain History of Present Illness: 44 year year old male with history of diabetes mellitus type 2 non- insulin dependent, hypertension, hyperlipidemia, obesity. Patient presents with chest pain. Patient reports chest pain over the past week. This been getting worse. Chest pain comes and goes. It is mainly to the substernal region and radiates to the left and right. Today he had pain that rated around 6/10. It started on the right side then radiated to the left. Patient has reported some mild nasal congestion. He denies any fever. Some body aches noted. Over the past week he also has noted headaches, poor sleep. present reports that he snores. He has been under lot of stress recently. He recent losses job and is working a side job. He also reports that a co-worker tested positive for COVID but he was tested last week and told that he was negative. Patient came to the ER for further evaluation. In the ER he was evaluated. Vital signs stable. Respirations within normal range. Heart rate normal. He was afebrile with oxygen saturations around 90%. No significant EKG changes noted. Cardiac enzymes unremarkable. CBC unremarkable. BMP unremarkable. Blood sugar well controlled. AST slightly elevated at 51. ALT 109. Lipase unremarkable. Chest x-ray unremarkable. The patient was admitted for observation. When I saw the patient ER, patient appeared stable. He does not drink or smoke on a regular basis. He mainly does this on occasion. Patient reports family history of heart disease. He reports having a stress test 2-3 years ago which was unremarkable including an echocardiogram. This was done with cardiology locally. Allergies No Known Allergies Allergy (Unverified 08/08/11 08:43) Home medications list reviewed: Yes - Past Medical/Surgical History Diabetic: Yes -: Diabetes mellitus type 2 [id number] -: Hypertension -: Hyperlipidemia -: Obesity -: Suspect obstructive sleep apnea Past Surgical History: Patient denies surgical history Psychosocial/ Personal History: Patient . - Family History Father -: Heart disease - Social History Smoking Status: Light Tobacco smoker (1-9 cigarettes/day) Counseled patient to stop smoking for: less than 10 minutes Smoking therapy provided: Yes Patient receptive to therapy: Yes Alcohol use: Yes CD- Drugs: No Caffeine use: Yes Place of Residence: Home Review of Systems General: As per HPI Eyes: Unremarkable ENT: Nose Congestion, As per HPI Respiratory: Unremarkable Cardiovascular: Chest Pain, As per HPI Gastrointestinal: Unremarkable Genitourinary: Unremarkable Musculoskeletal: Unremarkable Integumentary: Unremarkable Neurological: As per HPI Lymphatics: Unremarkable Physical Examination - Physical Exam General: Alert, In no apparent distress, Oriented x3, Cooperative HEENT: Atraumatic, Normocephalic, PERRLA, Mucous membr. moist/pink Neck: Supple Respiratory: Clear to auscultation bilaterally, Normal air movement Cardiovascular: Normal pulses, Regular rate/rhythm Gastrointestinal: Normal bowel sounds, Soft and benign, Non-distended, No tenderness, No masses, No rebound, No guarding Musculoskeletal: No erythema, No tenderness, No warmth Integumentary: No tenderness/swelling, No erythema, No warmth, No cyanosis Neurological: Normal speech, Normal strength at 5/5 x4 extr, Normal tone, Normal affect - Studies Laboratory Data (last 24 hrs) 02/17/20 13:35: WBC 8.1, Hgb 16.0, Hct 46.2, Plt Count 246 02/17/20 13:35: Sodium 139, Potassium 3.9, BUN 16, Creatinine 0.96, Glucose 118 H, Magnesium 2.2, Total Bilirubin 0.7, AST 51 H, ALT 109 H, Alkaline Phosphatase 93, Lipase 267 02/17/20 13:09: WBC Cancelled, Hgb Cancelled, Hct Cancelled, Plt Count Cancelled 02/17/20 13:09: Sodium Cancelled, Potassium Cancelled, BUN Cancelled, Creatinine Cancelled, Glucose Cancelled, Magnesium Cancelled, Total Bilirubin Cancelled, AST Cancelled, ALT Cancelled, Alkaline Phosphatase Cancelled, Lipase Cancelled Assessment and Plan - Plan Impression: Chest pain atypical Diabetes mellitus type 2 [id number] Hypertension Hyperlipidemia Suspect obstructive sleep apnea Elevated liver function suspect underlying fatty liver Obesity Plan: Chest pain atypical: Patient will admitted for further evaluation and observation. Will continue to monitor telemetry and cardiac enzymes. Will continue with aspirin, metoprolol, lisinopril, hydrochlorothiazide, and Lipitor. Will place on DVT prophylaxis-Lovenox. Will monitor lab. Will obtain fast lipid panel, tsh and A1c. Will consult cardiology who has evaluated the patient in the past. Anticipate improvement within the next 24 hr. Possible discharge as early as tonight or early tomorrow if cardiac enzymes unremarkable. Suspect further workup can be done as an outpatient if cardiac enzymes negative. Will discuss with cardiology. Diabetes mellitus type 2 [id number]-[id number]: Will continue with Accu-Cheks and sliding scale. Will check A1c. Blood sugar seems to be well controlled. Hold metformin at this time. Hypertension: Restart home medication metoprolol, lisinopril and hydrochlorothiazide. Will adjust accordingly. Hyperlipidemia: Patient takes lovastatin as an outpatient. Will start Lipitor and house. Will check fasting lipid panel. Suspect obstructive sleep apnea: Suspect underlying obstructive sleep apnea. Recommend pulmonology evaluation as an outpatient for sleep study. Elevated liver function suspect underlying fatty liver: Will provide education on fatty liver. Lifestyle modification education provided. Patient does take statin medication but liver function tests not extremely elevated. This can be further evaluated as an outpatient with GI. Obesity: Will obtain BMI. Lifestyle modification education provided. Discharge Plan: Home Plan to discharge in: 24 Hours - Advance Directives Does patient have a Durable POA for Healthcare: No - Code Status/Comfort Care Code Status Assessed: Yes (Patient is full code) Time Spent Managing Pts Care (In Minutes): 55
[2020-02-17] MEDS ORDERED: FAMOTIDINE 20 MG/2 ML VIAL IV ONE (15:04)
[2020-02-17] MEDS ORDERED: METOPROLOL TAR 25 MG TAB ONE (15:08)
[2020-02-17 17:18] LABS: Urine Blood NEGATIVE (NEG); Urine Glucose NEGATIVE (NEG); Urine Protein NEGATIVE (NEG); Urine Specific Gravity 1.025 (1.005-1.030)
[2020-02-17 18:00] VITALS: BMI 36.6
[2020-02-17] MEDS: INSULIN -REGULAR HUMAN 50 UNIT/0.5 ML ML SQ SCH ×2 (18:11→20:36)
[2020-02-17] MEDS: METOPROLOL TAR 25 MG TAB PO SCH (18:11)
[2020-02-17] MEDS ORDERED: ACETAMINOPHEN 500 MG TAB PO PRN (18:11)
[2020-02-17] MEDS ORDERED: ONDANSETRON 4 MG/2 ML VIAL IV PRN (18:11)
[2020-02-17] MEDS ORDERED: POTASSIUM CL SA 10 MEQ TAB PO ONE (18:15)
[2020-02-17] MEDS: lisinopriL 10 MG TAB PO SCH (20:34)
[2020-02-17 20:55] LABS: CKMB Creatine Kinase MB 1.1 ng/mL (0.3-3.6); Creatine Phosphokinase 114 U/L (39-308); Troponin I < 0.02 ng/mL (0.0-0.045)
[2020-02-17] MEDS ORDERED: ATORVASTATIN 10 MG TAB PO SCH (21:00)
[2020-02-18 01:05] VITALS: O2SAT 96
[2020-02-18 01:33] LABS: CKMB Creatine Kinase MB 1.3 ng/mL (0.3-3.6); Creatine Phosphokinase 112 U/L (39-308); Troponin I < 0.02 ng/mL (0.0-0.045)
[2020-02-18 04:35] VITALS: BP 109/53
[2020-02-18] MEDS: METOPROLOL TAR 25 MG TAB PO SCH (05:15)
[2020-02-18 06:46] LABS: BUN Blood Urea Nitrogen 14 mg/dL (7-18); Bicarbonate 29 mmol/L (21-32); Glucose Level 113 mg/dL (74-106); HDL Cholesterol 28 mg/dL (40-60); Sodium Level 137 mmol/L (136-145)
[2020-02-18 06:47] LABS: Magnesium 2.3 mg/dL (1.8-2.4); Potassium 4.4 mmol/L (3.5-5.1)
[2020-02-18 06:57] LABS: LDL, Direct 115 mg/dL (100-129)
[2020-02-18] MEDS ORDERED: INFLUENZA VACCINE (for 3y+) 0.5 ML DOSE IMVAC ONE (07:00)
[2020-02-18] MEDS: INSULIN -REGULAR HUMAN 50 UNIT/0.5 ML ML SQ SCH (07:30)
--- NOTE | 2020-02-18 08:00 | P.DS ---
Admission Date: 02/17/20 Discharge Date: 02/18/20 Primary Care Provider: Go Foster; Cardiology-Dr. Aguilar Disposition: ROUTINE DISCHARGE Discharge Condition: GOOD Reason for Admission: Chest pain Consultations: None Procedures: COVID: Negative CXR: COMPARISON: 2019 FINDINGS: The lungs appear clear of acute infiltrate. The heart is normal size IMPRESSION: No acute abnormalities displayed Medical Problem List: Chest pain atypical Diabetes mellitus type 2 uvy-nvvjahe-emuqmpryh Hypertension Hyperlipidemia Suspect obstructive sleep apnea Elevated liver function suspect underlying fatty liver Obesity, BMI 36 Brief History of Present Illness: 44 year year old male with history of diabetes mellitus type 2 non- insulin dependent, hypertension, hyperlipidemia, obesity. Patient presents with chest pain. Patient reports chest pain over the past week. This been getting worse. Chest pain comes and goes. It is mainly to the substernal region and radiates to the left and right. Today he had pain that rated around 6/10. It started on the right side then radiated to the left. Patient has reported some mild nasal congestion. He denies any fever. Some body aches noted. Over the past week he also has noted headaches, poor sleep. present reports that he snores. He has been under lot of stress recently. He recent losses job and is working a side job. He also reports that a co-worker tested positive for COVID but he was tested last week and told that he was negative. Patient came to the ER for further evaluation. In the ER he was evaluated. Vital signs stable. Respirations within normal range. Heart rate normal. He was afebrile with oxygen saturations around 90%. No significant EKG changes noted. Cardiac enzymes unremarkable. CBC unremarkable. BMP unremarkable. Blood sugar well controlled. AST slightly elevated at 51. ALT 109. Lipase unremarkable. Chest x-ray unremarkable. The patient was admitted for observation. When I saw the patient ER, patient appeared stable. He does not drink or smoke on a regular basis. He mainly does this on occasion. Patient reports family history of heart disease. He reports having a stress test 2-3 years ago which was unremarkable including an echocardiogram. This was done with cardiology locally. Hospital Course: Patient presented with atypical chest pain. Patient was admitted for further evaluation observation. Cardiac enzymes unremarkable. No significant changes noted. Case discussed with cardiology. No cardiac intervention required at this time. Blood pressures have been very well controlled. Patient takes metoprolol 100 mg daily and lisinopril hydrochlorothiazide daily. Patient has not required he has normal dose of medication. Patient has reported some fatigue as well. Fatigue maybe multi factorial. His blood pressure medication will be adjusted. Patient likely has underlying obstructive sleep apnea. Blood sugars well controlled with hemoglobin A1c 5.8. Triglycerides elevated at 788, triglycerides 235 and LDL of 115. At discharge patient will continue with aspirin 81 mg daily. For his blood pressure medication will recommend to discontinue lisinopril hydrochlorothiazide. Patient will continue with metoprolol and lisinopril, but at a reduced dose. At discharge he may continue with metoprolol 25 mg 1 pill twice daily and lisinopril 10 mg daily. Recommend to maintain blood pressure less than 120/80. Hold blood pressure medications if systolic less than 110 or heart rate less than 50. Further adjustment in medication can be done by his PCP. At discharge will recommend to increase his lovastatin to 40 mg daily and add fish oil 1000 mg 1 pill twice daily. Recommend follow up with cardiology this week. Cardiology will plan for outpatient workup including echocardiogram and cardiac stress test. Recommend follow up with his PCP within 1 week to follow up this hospitalization. As mentioned above patient with diabetes mellitus type 2 [id number]. Diabetes is well controlled. A1c 5.8. At discharge patient may continue with metformin 500 mg daily. Recommend to maintain blood sugar less than 140 fasting less than 200 after meals. Further adjustment in his medication can be done by his PCP. As mentioned above patient with hypertension. Blood pressures have been well controlled while in the hospital. Patient has not required his normal dose of medications. This may be contributing to his fatigue. Medications have been adjusted. His lisinopril/hydrochlorothiazide has been discontinued. Metoprolol has been decreased. At discharge patient may continue with metoprolol 25 mg 1 pill twice daily and lisinopril 10 mg daily. Recommend to monitor his blood pressure daily along with his heart rate. Recommend to maintain blood pressure less than 130/80. Hold medications if blood pressure systolic less than 110 or heart rate less than 50. Further adjustment in medication may be required. This can be done with the help of his PCP or cardiology. Patient with hyperlipidemia. Patient takes medication. Triglycerides 788, total cholesterol 235, LDL 115. As mentioned above will recommend to increase lovastatin to 40 mg daily. Additional medication includes fish oil 1000 mg 1 pill twice daily. Patient with elevated liver function. Suspect underlying fatty liver. Patient with obesity and BMI 36.6. Education on fatty liver provided. Recommend abdominal ultrasound as an outpatient and further monitoring of his liver function test. Consider additional workup if liver function tests remain elevated. His lovastatin medication will be increased. This can contribute to elevated liver function. Will need to monitor his levels closely as an outpatient. Consider GI evaluation as an outpatient for further evaluation. Recommend to recheck lab-CMP in 1-2 weeks to monitors progress. This can be done with the help of his PCP. Patient likely with underlying obstructive sleep apnea. Recommend pulmonology evaluation as an outpatient for a sleep study to further address. Vital Signs/Physical Exam: Temp Pulse Resp BP Pulse Ox 97.4 F 63 16 109/53 L 98 02/18/20 04:00 02/18/20 05:15 02/18/20 04:00 02/18/20 05:15 02/18/20 04:00 General: Alert, In no apparent distress, Oriented x3, Cooperative HEENT: Atraumatic Neck: Supple Respiratory: Clear to auscultation bilaterally, Normal air movement Cardiovascular: Normal pulses, Regular rate/rhythm Gastrointestinal: Normal bowel sounds, Soft and benign, Non-distended, No tenderness, No masses, No rebound, No guarding Musculoskeletal: No erythema, No tenderness, No warmth Integumentary: No tenderness/swelling, No erythema, No warmth, No cyanosis Neurological: Normal speech, Normal strength at 5/5 x4 extr, Normal tone, Normal affect Laboratory Data at Discharge: WBC 8.1 K/uL (4.3-10.9) 02/17/20 13:35 Hgb 16.0 g/dL (13.6-17.9) 02/17/20 13:35 Hct 46.2 % (39.6-49.0) 02/17/20 13:35 Plt Count 246 K/uL (152-406) 02/17/20 13:35 Sodium 137 mmol/L (136-145) 02/18/20 05:22 Potassium 4.4 mmol/L (3.5-5.1) 02/18/20 05:22 BUN 14 mg/dL (7-18) 02/18/20 05:22 Creatinine 1.03 mg/dL (0.55-1.3) 02/18/20 05:22 Glucose 113 mg/dL (74-106) H 02/18/20 05:22 Magnesium 2.3 mg/dL (1.8-2.4) 02/18/20 05:22 Total Bilirubin 0.7 mg/dL (0.2-1.0) 02/17/20 13:35 AST 51 U/L (15-37) H 02/17/20 13:35 ALT 109 U/L (12-78) H 02/17/20 13:35 Alkaline Phosphatase 93 U/L (45-117) 02/17/20 13:35 Troponin I < 0.02 ng/mL (0.0-0.045) 02/18/20 00:57 Triglycerides 788 mg/dL (<150) H 02/18/20 05:22 Cholesterol 235 mg/dL (<200) H 02/18/20 05:22 LDL Cholesterol Direct 115 mg/dL (100-129) 02/18/20 05:22 HDL Cholesterol 28 mg/dL (40-60) L 02/18/20 05:22 Cholesterol/HDL Ratio 8.39 02/18/20 05:22 Lipase 267 U/L (73-393) 02/17/20 13:35 Home Medications: Metformin HCl 1 tab PO DAILY 02/17/20 Aspirin [Aspirin EC 81 MG] 81 mg PO DAILY #90 tablet. 02/18/20 Docosahexanoic AC/Epa [Fish Oil 1,000 MG CAP] 1 cap PO BID #60 cap 02/18/20 Lovastatin 40 mg PO BEDTIME #30 tablet 02/18/20 Metoprolol Tartrate [Lopressor*] 25 mg PO BID 6AM 6PM #60 tab 02/18/20 lisinopriL [Prinivil*] 10 mg PO DAILY #30 tab 02/18/20 New Medications: Aspirin [Aspirin EC 81 MG] 81 mg PO DAILY #90 tablet. Docosahexanoic AC/Epa [Fish Oil 1,000 MG CAP] 1 cap PO BID #60 cap Metoprolol Tartrate [Lopressor*] 25 mg PO BID 6AM 6PM #60 tab Lovastatin 40 mg PO BEDTIME #30 tablet lisinopriL [Prinivil*] 10 mg PO DAILY #30 tab Patient Discharge Instructions: 1. Recommend follow up with PCP in 1 week to follow up this hospitalization. 2. Patient presented with atypical chest pain. Patient was admitted for further evaluation observation. Cardiac enzymes unremarkable. No significant changes noted. Case discussed with cardiology. No cardiac intervention required at this time. Blood pressures have been very well controlled. Patient takes metoprolol 100 mg daily and lisinopril hydrochlorothiazide daily. Patient has not required he has normal dose of medication. Patient has reported some fatigue as well. Fatigue maybe multi factorial. His blood pressure medication will be adjusted. Patient likely has underlying obstructive sleep apnea. Blood sugars well controlled with hemoglobin A1c 5.8. Triglycerides elevated at 788, triglycerides 235 and LDL of 115. At discharge patient will continue with aspirin 81 mg daily. For his blood pressure medication will recommend to discontinue lisinopril hydrochlorothiazide. Patient will continue with metoprolol and lisinopril, but at a reduced dose. At discharge he may continue with metoprolol 25 mg 1 pill twice daily and lisinopril 10 mg daily. Recommend to maintain blood pressure less than 120/80. Hold blood pressure medications if systolic less than 110 or heart rate less than 50. Further adjustment in medication can be done by his PCP. At discharge will recommend to increase his lovastatin to 40 mg daily and add fish oil 1000 mg 1 pill twice daily. Recommend follow up with cardiology this week. Cardiology will plan for outpatient workup including echocardiogram and cardiac stress test. Recommend follow up with his PCP within 1 week to follow up this hospitalization. 3. As mentioned above patient with diabetes mellitus type 2 [id number]. Diabetes is well controlled. A1c 5.8. At discharge patient may continue with metformin 500 mg daily. Recommend to maintain blood sugar less than 140 fasting less than 200 after meals. Further adjustment in his medication can be done by his PCP. 4. As mentioned above patient with hypertension. Blood pressures have been well controlled while in the hospital. Patient has not required his normal dose of medications. This may be contributing to his fatigue. Medications have been adjusted. His lisinopril/hydrochlorothiazide has been discontinued. Metoprolol has been decreased. At discharge patient may continue with metoprolol 25 mg 1 pill twice daily and lisinopril 10 mg daily. Recommend to monitor his blood pressure daily along with his heart rate. Recommend to maintain blood pressure less than 130/80. Hold medications if blood pressure systolic less than 110 or heart rate less than 50. Further adjustment in medication may be required. This can be done with the help of his PCP or cardiology. 5. Patient with hyper lipidemia. Patient takes medication. Triglycerides 788, total cholesterol 235, LDL 115. As mentioned above will recommend to increase lovastatin to 40 mg daily. Additional medication includes fish oil 1000 mg 1 pill twice daily. 6. Patient with elevated liver function. Suspect underlying fatty liver. Patient with obesity and BMI 36.6. Education on fatty liver provided. Recommend abdominal ultrasound as an outpatient and further monitoring of his liver function test. Consider additional workup if liver function tests remain elevated. His lovastatin medication will be increased. This can contribute to elevated liver function. Will need to monitor his levels closely as an outpatient. Consider GI evaluation as an outpatient for further evaluation. Recommend to recheck lab-CMP in 1-2 weeks to monitors progress. This can be done with the help of his PCP. 7. Patient likely with underlying obstructive sleep apnea. Recommend pulmonology evaluation as an outpatient for a sleep study to further address. Diet: ADA Activity: Ad opal Followup: NONE,NONE [Primary Care Provider] - Time spent managing pt's care (in minutes): 55
[2020-02-18] MEDS: lisinopriL 10 MG TAB PO SCH (08:13)
[2020-02-18 08:29] VITALS: TEMP 97.2
[2020-02-18] MEDS ORDERED: ASPIRIN EC 81 MG TAB PO SCH (09:00)
[2020-02-18] MEDS ORDERED: hydroCHLOROthiazide 25 MG TAB PO SCH (09:00)
[2020-02-18] MEDS ORDERED: ENOXAPARIN 40 MG/0.4 ML SQ SCH (09:00)
--- NOTE | 2020-02-18 10:12 | EKG ---
Test Date: 2020-02-17 Test Time: 13:14:28 Secondary Social Studies Teacher: MAGDALENO MEASUREMENT RESULTS: Intervals: Rate: 87 [place]: 146 QRSD: 86 QT: 346 QTc: 416 [place]: P: 47 [place]: 146 QRS: -70 T: 30 INTERPRETIVE STATEMENTS: Normal sinus rhythm Left axis deviation RSR' or QR pattern in V1 suggests right ventricular conduction delay Abnormal ECG Compared to ECG 01/05/2019 09:20:04 Left-axis deviation now present RSR' in V1 or V2 now present Electronically Signed On 02-18-20 10:10:17 [employer]ERAL SURVEYING TECHNICIAN by Deng Aguilar
== END 2020-02-18 09:14 | disposition home or self-care (01) ==
LOC: ER 12:58 → ERHOLD 14:51 → 2ND 17:14
PROVIDERS: ADMIT Family Medicine; ATTEND Family Medicine
DX: R07.89 Other chest pain (principal); E11.9 Type 2 diabetes mellitus without complications; Z20.828 Contact with and (suspected) exposure to other viral communicable diseases; R94.31 Abnormal electrocardiogram [ECG] [EKG]; I10 Essential (primary) hypertension; E78.5 Hyperlipidemia, unspecified; E66.9 Obesity, unspecified; Z68.36 Body mass index [BMI] 36.0-36.9, adult; R94.5 Abnormal results of liver function studies; Z79.84 Long term (current) use of oral hypoglycemic drugs; F17.210 Nicotine dependence, cigarettes, uncomplicated
CPT/HCPCS: 93005; 85025; 80048 ×2; 36415; 83721; 83735 ×2; 82550 ×2; 80061; 82947 ×3; 85379; 80076; 80307 ×8; 84443; 81003; 83036; 84484 ×3; 82553 ×2; 84439; 83690; 83880; 71045; 96372; 96374; 99285; U0002; J1650 ×2; G0378 ×3

== ENCOUNTER 2020-04-17 13:56 | Emergency (ER) | payer OTHER, SELFPAY ==
--- OUTSIDE RECORDS SUMMARY | 2020-04-17 14:25 | XMS REPORT | Clinical Summary ---
:1975 Author Organization [facility] Address [address] [place] [address] Care Team Providers Name Role Phone [facility] [...] Health Maintenance Due Date Last Done Comments COVID-19 VACCINE (#1) 1991 DIABETIC FOOT EXAM 06/29/2018 06/29/2017, 06/29/2017, 06/29 URINE MICROALBUMIN 06/29/2018 06/29/2017, 06/29/2017 DIABETES: RETINAL EYE EXAM 06/30/2019 06/29/2017, 8 INFLUENZA VACCINE 11/18/2019 Results Not on fileafter 04/17/2019 Advance Directives For more information, please contact: [phone] Type Date Recorded Patient Director Airport Explanati on Advance Directives, Living Will and Medical Power of [employer]
--- NOTE | 2020-04-17 14:56 | RAD REPORT ---
EXAM DESCRIPTION: CT - Thorax Wo Con CLINICAL HISTORY: Chest pain PAIN COMPARISON: Chest Single View dated 02/17/2020 FINDINGS: The lungs are clear. No pleural thickening or pleural effusion. No pneumothorax. No axillary, mediastinal or hilar adenopathy. No concerning bony finding. No gross upper abdominal finding. All CT scans are performed using dose optimization technique as appropriate and may include automated exposure control or mA/KV adjustment according to patient size. IMPRESSION: No acute intrathoracic abnormality.
--- NOTE | 2020-04-17 15:31 | EDPHYS ---
Physician Documentation [facility] Name: Viktor Alatorre Sr Age: 44 yrs Sex: Male : 1975 Arrival Date: 04/17/2020 Time: 13:58 Bed 25 Private MD: ED Physician David Linton HPI: 04/17 16:05 This 44 yrs old Male presents to ER via Ambulatory with complaints of Pain. kb 16:05 The patient or guardian reports chest pain that is located primarily in the anterior kb chest wall, left. Onset: yesterday. The pain does not radiate. Associated signs and symptoms: The patient has no apparent associated signs or symptoms. The chest pain is described as sharp. Duration: The patient or guardian reports a single episode. Modifying factors: The symptoms are alleviated by remaining still, the symptoms are aggravated by cough, deep breath, movement, palpation of area. Severity of pain: At its worst the pain was mild moderate in the emergency department the pain is unchanged. The patient has not experienced similar symptoms in the past. The patient has not recently seen a physician. Pt reports he sneezed hard last night and felt a pop in lower, anterior left ribs. Pain now with deep inspiration, cough, movement and palpation. . Historical: - Allergies: 14:19 No Known Allergies; dm5 - Home Meds: 15:12 lisinopril-hydrochlorothiazide Oral [Active]; Lovastatin Oral [Active]; Metformin Oral aa5 [Active]; metoprolol tartrate 25 mg Oral tab 1 tab once daily [Active]; - PMHx: 15:12 Diabetes - NIDDM; High Cholesterol; Hypertension; aa5 - PSHx: 15:12 None; aa5 ROS: 15:56 Constitutional: Negative for fever, chills, and weight loss, Respiratory: Negative for kb shortness of breath, cough, wheezing, and pleuritic chest pain, Abdomen/GI: Negative for abdominal pain, nausea, vomiting, diarrhea, and constipation, Back: Negative for injury and pain, MS/Extremity: Negative for injury and deformity, Skin: Negative for injury, rash, and discoloration, Neuro: Negative for headache, weakness, numbness, tingling, and seizure. 15:56 Cardiovascular: Positive for chest pain, with cough, with movement, of the left breast. Exam: 15:55 Constitutional: This is a well developed, well nourished patient who is awake, alert, kb and in no acute distress. Head/Face: Normocephalic, atraumatic. Cardiovascular: Regular rate and rhythm with a normal S1 and S2. No gallops, murmurs, or rubs. Normal PMI, no JVD. No pulse deficits. Respiratory: Lungs have equal breath sounds bilaterally, clear to auscultation and percussion. No rales, rhonchi or wheezes noted. No increased work of breathing, no retractions or nasal flaring. Abdomen/GI: Soft, non-tender, with normal bowel sounds. No distension or tympany. No guarding or rebound. No evidence of tenderness throughout. Skin: Warm, dry with normal turgor. Normal color with no rashes, no lesions, and no evidence of cellulitis. MS/ Extremity: Pulses equal, no cyanosis. Neurovascular intact. Full, normal range of motion. Neuro: Awake and alert, GCS 15, oriented to person, place, time, and situation. Cranial nerves II-XII grossly intact. Motor strength 5/5 in all extremities. Sensory grossly intact. Cerebellar exam normal. Normal gait. 15:55 Chest/axilla: Inspection: normal, Palpation: tenderness, that is moderate, of the left breast, that totally reproduces the patient's complaints. Vital Signs: 14:16 BP 135 / 89; Pulse 84; Resp 20; Temp 98.6; Pulse Ox 98% on R/A; Weight 99.79 kg; Height dm5 5 ft. 5 in. (165.10 cm); Pain 9/10; 14:16 Body Mass Index 36.61 (99.79 kg, 165.10 cm) dm5 MDM: 15:20 Patient medically screened. kb 15:55 Data reviewed: vital signs, nurses notes. Data interpreted: Pulse oximetry: on room air kb is 98 %. Interpretation: normal. Counseling: I had a detailed discussion with the patient and/or guardian regarding: the historical points, exam findings, and any diagnostic results supporting the discharge/admit diagnosis, radiology results, the need for outpatient follow up, a family practitioner, to return to the emergency department if symptoms worsen or persist or if there are any questions or concerns that arise at home. 04/17 14:20 Order name: CT Chest Wo Con; Complete Time: 15:05 kb Administered Medications: 15:44 Drug: TORadol 30 mg Route: IM; Site: left deltoid; aa5 15:57 Follow up: Response: No adverse reaction aa5 Disposition: 16:32 Co-signature as Attending Physician, David Linton MD I agree with the assessment and kdr plan of care. Disposition: 04/17/20 15:31 Discharged to Home. Impression: Chest pain on breathing. - Condition is Stable. - Discharge Instructions: Costochondritis, [id number], Chest Wall Pain, [id number]. - Prescriptions for Ibuprofen 800 mg Oral Tablet - take 1 tablet by ORAL route every 8 hours As needed take with food; 30 tablet. Cyclobenzaprine 10 mg Oral Tablet - take 1 tablet by ORAL route every 8 hours As needed; 21 tablet. - Medication Reconciliation Form, Thank You Letter, Antibiotic Education, Prescription Opioid Use form. - Follow up: Emergency Department; When: As needed; Reason: Worsening of condition. Follow up: Private Physician; When: 2 - 3 days; Reason: Recheck today's complaints, Continuance of care, Re-evaluation by your physician. Signatures: Dispatcher [employer] EDMS Vicky Mackey, MATCHER OPERATOR-C MATCHER OPERATOR-Lexi Schultz, RN RN dm5 David Linton MD MD [facility] Pushpa Rodriguez, RN RN aa5 Corrections: (The following items were deleted from the chart) 15:58 15:31 04/17/2020 15:31 Discharged to Home. Impression: Chest pain on breathing. dm5 Condition is Stable. Forms are Medication Reconciliation Form, Thank You Letter, Antibiotic Education, Prescription Opioid Use. Follow up: Emergency Department; When: As needed; Reason: Worsening of condition. Follow up: Private Physician; When: 2 - 3 days; Reason: Recheck today's complaints, Continuance of care, Re-evaluation by your physician. kb
--- NOTE | 2020-04-17 15:31 | ER ---
Nurse's Notes [facility] Name: Viktor Alatorre Sr Age: 44 yrs Sex: Male : 1975 Arrival Date: 04/17/2020 Time: 13:58 Bed 25 Private MD: Diagnosis: Chest pain on breathing Presentation: 04/17 14:16 Chief complaint: Patient states: sitting on the couch last night and sneezed, heard a dm5 pop in left lower chest and has had pain ever since. Pain rated at 9/10 worse when bending down, coughing, and with touch. Coronavirus screen: Client denies travel out of the [place] in the last 14 days. sneezing, cough Client presents with at least one sign or symptom that may indicate coronavirus-19. Standard/surgical mask placed on the client. Ebola Screen: Patient negative for fever greater than or equal to 101.5 degrees Fahrenheit, and additional compatible Ebola Virus Disease symptoms Patient denies exposure to infectious person. Patient denies travel to an Ebola-affected area in the 21 days before illness onset. No symptoms or risks identified at this time. Initial Sepsis Screen: Does the patient meet any 2 criteria? No. Patient's initial sepsis screen is negative. Does the patient have a suspected source of infection? No. Patient's initial sepsis screen is negative. Risk Assessment: Do you want to hurt yourself or someone else? Patient reports no desire to harm self or others. Onset of symptoms was April 16, 2020. 14:16 Method Of Arrival: Ambulatory dm5 14:16 Acuity: MITCH 4 dm5 Historical: - Allergies: 14:19 No Known Allergies; dm5 - Home Meds: 15:12 lisinopril-hydrochlorothiazide Oral [Active]; Lovastatin Oral [Active]; Metformin Oral aa5 [Active]; metoprolol tartrate 25 mg Oral tab 1 tab once daily [Active]; - PMHx: 15:12 Diabetes - NIDDM; High Cholesterol; Hypertension; aa5 - PSHx: 15:12 None; aa5 Screenin:15 Abuse screen: Denies threats or abuse. Nutritional screening: No deficits noted. aa5 Tuberculosis screening: No symptoms or risk factors identified. Fall Risk None identified. Assessment: 15:15 General: Appears uncomfortable, Behavior is calm, cooperative. Pain: Complains of pain aa5 in left breast Pain currently is 9 out of 10 on a pain scale. Quality of pain is described as sharp, Is continuous, Aggravated by increased activity, repositioning. Neuro: Level of Consciousness is awake, alert, obeys commands, Oriented to person, place, time, situation. Cardiovascular: Heart tones S1 S2 present Rhythm is regular. Respiratory: Airway is patent Respiratory effort is even, unlabored, Respiratory pattern is regular, symmetrical. GI: No signs and/or symptoms were reported involving the gastrointestinal system. : No signs and/or symptoms were reported regarding the genitourinary system. EENT: No signs and/or symptoms were reported regarding the EENT system. Derm: Skin is pink, warm \T\ dry. Musculoskeletal: Range of motion: intact in all extremities. 15:50 Reassessment: Patient is alert, oriented x 3, equal unlabored respirations, skin aa5 warm/dry/pink. Vital Signs: 14:16 BP 135 / 89; Pulse 84; Resp 20; Temp 98.6; Pulse Ox 98% on R/A; Weight 99.79 kg; Height dm5 5 ft. 5 in. (165.10 cm); Pain 9/10; 14:16 Body Mass Index 36.61 (99.79 kg, 165.10 cm) dm5 ED Course: 13:58 Patient arrived in ED. ag5 14:19 Triage completed. dm5 14:19 Vicky Mackey FNP-C [facility]. kb 14:19 David Linton MD is Attending Physician. kb 14:19 Arm band placed on right wrist. dm5 14:41 CT Chest Wo Con In Process Unspecified. EDMS 15:12 Pushpa Rodriguez, RN is Primary Nurse. aa5 15:15 Patient has correct armband on for positive identification. Bed in low position. Call aa5 light in reach. Side rails up X 1. 15:50 No provider procedures requiring assistance completed. Patient did not have IV access aa5 during this emergency room visit. Administered Medications: 15:44 Drug: TORadol 30 mg Route: IM; Site: left deltoid; aa5 15:57 Follow up: Response: No adverse reaction aa5 Outcome: 15:31 Discharge ordered by . kb 15:57 Discharged to home ambulatory. dm5 15:57 Condition: good 15:57 Discharge instructions given to patient, family, Instructed on discharge instructions, follow up and referral plans. medication usage, Demonstrated understanding of instructions, follow-up care, medications, Prescriptions given X 2. 15:58 Patient left the ED. dm5 Signatures: Dispatcher [employer] EDVicky Del Valle, PORTABLE PINCH RIVETER-C PORTABLE PINCH RIVETER-Lexi Schultz RN RN dm5 Pushpa Rodriguez RN RN sy5 Kelly [facility]
[2020-04-17] MEDS ORDERED: KETOROLAC 30 MG/ML INJ ONE (15:57)
[2020-04-17 16:01] VITALS: BP 135/89; TEMP 98.6; O2SAT 98
== END 2020-04-17 15:58 | disposition home or self-care (01) ==
LOC: ER 13:56
DX: R07.1 Chest pain on breathing (principal); I10 Essential (primary) hypertension; E78.00 Pure hypercholesterolemia, unspecified; E11.9 Type 2 diabetes mellitus without complications
CPT/HCPCS: 71250; 96372; 99283

== ENCOUNTER 2020-05-26 22:43 | Emergency (ER) | payer SELFPAY ==
--- OUTSIDE RECORDS SUMMARY | 2020-05-26 22:46 | XMS REPORT | Summary of Care ---
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 [facility] COMP. METABOLIC PANEL ([id number]) (05/20/2020 8:22 AM TEST [facility] [employer]) Pathologist Sig nature NA 139 135 - 145 [facility] mmol/L [facility] K 4.3 3.5 - 5.0 [facility] mmol/L [facility] CL 103 98 - 108 mmol/L [facility] CO2 TOTAL 24 23 - 31 mmol/L [facility] AGAP 12 2 - 16 [facility] BUN 11 7 - 23 mg/dL [facility] GLUCOSE 121 (H) 70 - 110 mg/dL [facility] CREATININE 0.75 0.60 - 1.25 [facility] mg/dL [facility] TOTAL BILI 0.5 0.1 - 1.1 mg/dL [facility] CALCIUM 9.7 8.6 - 10.6 [facility] mg/dL HOSPITAL [facility] T PROTEIN 8.2 6.3 - 8.2 g/dL [facility] ALBUMIN 4.8 3.5 - 5.0 g/dL [facility] ALK PHOS 142 (H) 34 - 122 U/L [facility] ALTv 100 (H) 5 - 50 U/L [facility] AST(SGOT) 60 (H) 13 - 40 U/L [facility] eGFR Calculation 113.1 mL/min/1.73m2 [facility] (Non-[facility] LABORATORY [place]) eGFR Calculation 137.1 mL/min/1.73m2 [facility] () [facility] Specimen Blood - VENOUS Narrative Performed At Association of Glomerular Filtration Rate (GFR) [facility] LAB[facility]ATORY and Staging of Kidney Disease* + + +- + | GFR (mL/min/1.73 m2) | With Kidney Damage | Without Kidney Damage + + +- + | >90 | Stage one | Normal + + +- + | 60-89 | Stage two | Decreased GFR + + +- + | 30-59 | Stage three | Stage three + + +- + | 15-29 | Stage four | Stage four + + +- + | <15 (or dialysis) | Stage five | Stage five + + +- + *Each stage assumes the associated GFR level has been in effect for at least three months. Stages 1 to 5, with or without kidney disease, indicate chronic kidney disease. Notes: Determination of stages one and two (with eGFR >59mL/min/1.73 m2) requires estimation of kidney damage for at least three months as defined by structural or functional abnormalities of the kidney, manifested by either: Pathological abnormalities or Markers of kidney damage (including abnormalities in the composition of the blood or urine or abnormalities in imaging tests). Performing Organization Address City/State/Zipcode Phone Number [facility] CLIA: [id number] [place], [place] [id number] LABORATORY [address] CBC WITH DIFF (05/20/2020 8:22 AM TEST [facility] [employer]IE[employer]) [facility] nature WBC 9.52 4.20 - 10.70 [facility] 10*3/L [facility] RBC 5.10 4.26 - 5.52 [facility] 10*6/L [facility] HGB 15.3 12.2 - 16.4 [facility] g/dL HOSPITAL LAB[facility]ORY HCT 44.5 38.4 - 49.3 % [facility] MCV 87.3 81.7 - 95.6 fL [facility] MCH 30.0 26.1 - 32.7 pg [facility] MCHC 34.4 31.2 - 35.0 [facility] g/dL [facility] RDW-SD 38.1 (L) 38.5 - 51.6 fL [facility] RDW-CV 11.9 (L) 12.1 - 15.4 % [facility] PLT 231 150 - 328 [facility] 10*3/L [facility] MPV 9.9 9.8 - 13.0 fL [facility] NRBC/100 WBC 0.0 0.0 - 10.0 /100 [facility] WBCs [facility] NRBC x10^3 <0.01 10*3/L [facility] GRAN MAT (NEUT) % 64.9 % [facility] IMM GRAN % 0.50 % [facility] LYMPH % 22.2 % [facility] MONO % 11.0 % [facility] EOS % 0.8 % [facility] BASO % 0.6 % [facility] GRAN MAT x10^3(ANC) 6.17 1.99 - 6.95 [facility] 10*3/uL HOSPITAL LAB[facility]ORY IMM GRAN x10^3 0.05 0.00 - 0.06 [facility] 10*3/uL [facility]ITAL [facility]ORY LYMPH x10^3 2.11 1.09 - 3.23 [facility] 10*3/uL H[facility]PITAL LAB[facility]ORY MONO x10^3 1.05 (H) 0.36 - 1.02 [facility] 10*3/uL H[facility]PITAL LAB[facility]ORY EOS x10^3 0.08 0.06 - 0.53 [facility] 10*3/uL H[facility]PITAL LAB[facility]ORY BASO x10^3 0.06 0.01 - 0.09 [facility] 10*3/uL HOSPITAL LAB[facility]ORY Specimen Blood - VENOUS Performing Organization Address City/State/Zipcode Phone Number [facility] CLIA: [id number] [place] [address] documented in this encounter Visit Diagnoses Diagnosis LLQ abdominal pain - Primary Abdominal pain, left lower quadrant Dehydration Omental infarction Acute vascular insufficiency of intestin e Epiploic appendagitis Other and unspecified noninfectious jae roenteritis and colitis documented in this encounter Administered Medications Medication Order MAR Action Action Date Dose Rate Site iohexol (OMNIPAQUE 350 BULK-150 Given 05/20/2020 9:40 AM TEST [facility] [employer] 12 0 mL mL) injection 120 mL 120 mL, Intravenous, ONCE, 1 dose, Wed05/20/20 at 1000, Routine NaCl 0.9% (NS) bolus infusion New Bag 05/20/2020 8:22 AM TEST [facility] [employer] 1,000 mL 999 mL/hr 1,000 mL at 999 mL/hr, 1,000 mL, IV Infusion, ONCE, 1 dose, Wed05/20/20 at 0830, STAT ondansetron (ZOFRAN (PF)) injection 4 mg Given 05/20/2020 8:29 AM TEST [employer] 4 mg 4 mg, Slow IV Push, ONCE, 1 dose, Wed05/20/20 at 0930, [place] documented in this encounter
--- OUTSIDE RECORDS SUMMARY | 2020-05-26 22:46 | XMS REPORT | Continuity of Care Document ---
:1975 Author Organization [facility] t Address [address] [place] [address] Care Team Providers Name Role Phone Aurora Mehta DO Primary Care Physician Singer HOWE Attending Clinician Problems Condition Condition Condition Status Onset Resolution Last Treating Co mments Source Name Details Category Date Date Treatment Clinician Date Essential Essential Disease Active Effie troncoso hypertensi hypertensi 3-13 Me thodi on on 00:00: st 00 Type 2 Type 2 Disease Active 2016-04 [facility] diabetes diabetes 2-04 [facility] mellitus mellitus 00:00: st without without 00 complicati complicati on on Hyperchole Hyperchole Disease Active 2016-04 [facility] steremia steremia 2-04 [facility] i 00:00: st 00 Allergies, Adverse Reactions, Alerts This patient has no known allergies or adverse reactions. Family History Family Member Diagnosis Comments Start Date Stop Date Source Natural father No Known Problems Effie k[facility]na [facility] Natural mother Hypertension [facility] Social History Social Habit Start Date Stop Date Quantity Comments Source History of Cigarette Smoker [facility] tobacco use Sex Assigned At [facility] ethodist Tobacco use and 2017-06-29 2017-06-29 Never used [facility]ist exposure 00:00:00 00:00:00 Alcohol intake 2017-06-29 2017-06-29 Current drinker [place] [facility] 00:00:00 00:00:00 of alcohol (finding) Tobacco Comment 2017-03-22 2017-03-22 1-2 cigs a month Effiedao troncoso [facility] 00:00:00 00:00:00 Alcohol Comment 2017-03-22 2017-03-22 pt goes through Antonia Mccormick 00:00:00 00:00:00 about a case of beer a month Smoking Status Start Date Stop Date Source Current some day smoker 2017-06-29 00:00:00 Antonia Mccormick Medications Ordered Filled Start Stop Current Ordering Indication Dosage Frequency Signature Comments Components Source Medication Medication Date Date Medication? Clinician (SIG) Name Name hydroCHLORO Yes Essential 25mg QD Take 1 [facility] thiazide 3-25 hypertensio tablet (25 [facility] (HYDRODIURI 00:00: n mg total) s t L) 25 MG 00 by mouth tablet daily. lisinopril Yes Essential 10mg QD Take 1 [facility] (PRINIVIL,Z 3-25 hypertensio tablet (10 [facility] ESTRIL) 10 00:00: n mg total) st mg tablet 00 by mouth daily. metFORMIN Yes Type 2 500mg Q.5D Take 1 Effie arletten (GLUCOPHAGE 3-25 diabetes tablet Me thodi ) 500 mg 00:00: mellitus ([address] tablet 00 without total) by complicatio mouth 2 n, without (two) long-term times a current use day with of insulin meals. ([facility]) lovastatin 2017-04 Yes Hypercholes TAKE ONE [facility] (MEVACOR) 2-17 teremia TABLET BY Me thodi 20 MG 00:00: MOUTH ONCE st tablet 00 DAILY (NIGHTLY) metoprolol Yes Essential 100mg QD Take 1 [facility] succinate 8-23 hypertensio tablet M ethodi XL 00:00: n ([address] (TOPROL-XL) 00 total) by 100 mg 24 mouth hr tablet daily. lovastatin Yes 20mg QD Take 1 [facility] on (MEVACOR) 3-23 tablet (20 Meth diana 20 MG 00:00: mg total) st tablet 00 by mouth nightly. fenofibrate Yes Hypercholes 40mg QD Take 1 [facility] (FENOGLIDE) 3-20 teremia tablet (40 [facility] 40 MG 00:00: mg total) st tablet 00 by mouth daily. Procedures This patient has no known procedures. Plan of Care Planned Activity Planned Date Details Comments Source Future Scheduled 2019-11-18 INFLUENZA VACCINE [place] [facility] 00:00:00 [code = INFLUENZA VACCINE] Future Scheduled 2019-06-30 DIABETES: RETINAL EYE [place] [facility] 00:00:00 EXAM [code = DIABETES: RETINAL EYE EXAM] Future Scheduled 2018-06-29 DIABETIC FOOT EXAM [place] [facility] 00:00:00 [code = DIABETIC FOOT EXAM] Future Scheduled 2018-06-29 URINE MICROALBUMIN [place] [facility] 00:00:00 [code = URINE MICROALBUMIN] Future Scheduled 1993-10-03 Hepatitis C screening [place] [place] [facility] 00:00:00 (procedure) [code = 251253872] Future Scheduled 1991 COVID-19 VACCINE (1 of [place] [facility] 00:00:00 2) [code = COVID-19 VACCINE (1 of 2)] Encounters Start End Encounter Admission Attending Care Care Encounter Source Date/Time Date/Time Type Type Clinicians Facility Department ID 2020-05-20 2020-05-20 Emergency Singer IAHEIDI [id number] 08:11:00 10:56:00 Vaibhav Foster [id number] [place] [id number] [place] [address] [id number] Results This patient has no known results.
--- OUTSIDE RECORDS SUMMARY | 2020-05-26 22:46 | XMS REPORT | Clinical Summary ---
:1975 Author Organization [facility] Address [address] [place] [address] Care Team Providers Name Role Phone Aurora [...] Type 2 diabetes mellitus without complication 03/22/20 Hypercholesteremia 03/22/2017 Family History Medical History Relation [...] Due Date Last Done Comments COVID-19 VACCINE (1 of 2) 1991 HEPATITIS C SCREENING 10/03/1993 DIABETIC FOOT EXAM 06/29/2018 06/29/2017, 06/29/2017, 06/29 URINE MICROALBUMIN 06/29/2018 06/29/2017, 06/29/2017 DIABETES: RETINAL EYE EXAM 06/30/2019 06/29/2017, 8 INFLUENZA VACCINE 11/18/2019 Results Not on fileafter 05/26/2019 Advance Directives For more information, please contact: [phone] Type Date Recorded Patient Senior Health Educator Explanati on Advance Directives, Living Will and Medical Power of Steward/Stewardess [employer]
[2020-05-26 23:39] LABS: Absolute Lymphocytes (CBC) 2.4 K/uL (0.7-4.9); Basophils % 0.9 % (0-1.3); Hematocrit 45.1 % (39.6-49.0); Lymphocytes % 27.3 % (15.3-44.8); MPV 8.7 fL (7.6-11.3); RBC Red Blood Cell Count 5.11 M/uL (4.33-5.43)
[2020-05-26 23:40] LABS: Protime INR 0.98
[2020-05-26 23:56] LABS: ALT/SGPT 117 U/L (12-78); Alkaline Phosphatase 129 U/L (45-117); BUN Blood Urea Nitrogen 14 mg/dL (7-18); Bicarbonate 24 mmol/L (21-32); Bilirubin Direct < 0.1 mg/dL (0-0.2); Bilirubin Total 0.3 mg/dL (0.2-1.0); Glucose Level 119 mg/dL (74-106); Lipase 326 U/L (73-393); NT PRO-BNP 41 pg/mL (<125); Protein, Total 8.3 g/dL (6.4-8.2); Sodium Level 140 mmol/L (136-145); Troponin (Emerg Dept Use Only) < 0.02 ng/mL (0.0-0.045)
[2020-05-26 23:57] LABS: AST/SGOT 51 U/L (15-37); Magnesium 2.2 mg/dL (1.8-2.4); Potassium 3.9 mmol/L (3.5-5.1)
[2020-05-27] MEDS ORDERED: NA CHLORIDE 0.9% 1,000 ML ONE
[2020-05-27] MEDS ORDERED: MORPHINE 4 MG/ML SYR ONE
[2020-05-27] MEDS ORDERED: ONDANSETRON 4 MG/2 ML VIAL ONE
[2020-05-27] MEDS ORDERED: FAMOTIDINE 20 MG/2 ML VIAL IV ONE
[2020-05-27 03:30] LABS: Urine Blood NEGATIVE (NEG); Urine Glucose NEGATIVE (NEG); Urine Protein NEGATIVE (NEG); Urine Specific Gravity 1.025 (1.005-1.030)
--- NOTE | 2020-05-27 03:49 | EDPHYS ---
Physician Documentation [facility] Name: Viktor Alatorre Sr Age: 44 yrs Sex: Male : 1975 Arrival Date: 05/26/2020 Time: 22:55 Bed 20 Private MD: ED Physician Tristan Sanders HPI: 05/26 23:48 This 44 yrs old Male presents to ER via Ambulatory with complaints of Chest mh7 Tightness, Dizziness. 23:48 The patient presents with abdominal pain in the epigastric area. Onset: The mh7 symptoms/episode began/occurred today. 23:48 The symptoms do not radiate. Associated signs and symptoms: Pertinent positives: mh7 nausea, dizziness, Pertinent negatives: anorexia, blood in stools, chest pain, constipation, diarrhea, dysuria, fever, headache, hematuria, palpitations, testicular pain, vomiting, vomiting blood. The symptoms are described as burning, waxing/waning. Modifying factors: The symptoms are alleviated by nothing, the symptoms are aggravated by food. Severity of pain: At its worst the pain was moderate today, in the emergency department the pain has improved moderately. Historical: - Allergies: 23:08 No Known Allergies; lp1 - Home Meds: 23:08 lisinopril-hydrochlorothiazide Oral [Active]; Lovastatin Oral [Active]; Metformin Oral lp1 [Active]; metoprolol tartrate 25 mg Oral tab 1 tab once daily [Active]; - PMHx: 23:08 Diabetes - NIDDM; High Cholesterol; Hypertension; lp1 - PSHx: 23:08 None; lp1 - Immunization history:: Adult Immunizations up to date. - Social history:: Smoking status: Patient denies any tobacco usage or history of. ROS: 23:48 Constitutional: Negative for fever, chills, and weight loss, Eyes: Negative for injury, mh7 pain, redness, and discharge, ENT: Negative for injury, pain, and discharge, Neck: Negative for injury, pain, and swelling, Cardiovascular: Negative for chest pain, palpitations, and edema, Back: Negative for injury and pain, : Negative for injury, bleeding, discharge, and swelling, MS/Extremity: Negative for injury and deformity, Skin: Negative for injury, rash, and discoloration, Neuro: Negative for headache, weakness, numbness, tingling, and seizure, Psych: Negative for depression, anxiety, suicide ideation, homicidal ideation, and hallucinations, Allergy/Immunology: Negative for hives, rash, and allergies, Endocrine: Negative for neck swelling, polydipsia, polyuria, polyphagia, and marked weight changes, Hematologic/Lymphatic: Negative for swollen nodes, abnormal bleeding, and unusual bruising. Exam: 23:48 Constitutional: This is a well developed, well nourished patient who is awake, alert, mh7 and in no acute distress. Head/Face: Normocephalic, atraumatic. Eyes: Pupils equal round and reactive to light, extra-ocular motions intact. Lids and lashes normal. Conjunctiva and sclera are non-icteric and not injected. Cornea within normal limits. Periorbital areas with no swelling, redness, or edema. Neck: Trachea midline, no thyromegaly or masses palpated, and no cervical lymphadenopathy. Supple, full range of motion without nuchal rigidity, or vertebral point tenderness. No Meningismus. Chest/axilla: Normal chest wall appearance and motion. Nontender with no deformity. No lesions are appreciated. Cardiovascular: Regular rate and rhythm with a normal S1 and S2. No gallops, murmurs, or rubs. Normal PMI, no JVD. No pulse deficits. Respiratory: Lungs have equal breath sounds bilaterally, clear to auscultation and percussion. No rales, rhonchi or wheezes noted. No increased work of breathing, no retractions or nasal flaring. 23:48 Back: No spinal tenderness. No costovertebral tenderness. Full range of motion. Skin: Warm, dry with normal turgor. Normal color with no rashes, no lesions, and no evidence of cellulitis. MS/ Extremity: Pulses equal, no cyanosis. Neurovascular intact. Full, normal range of motion. Neuro: Awake and alert, GCS 15, oriented to person, place, time, and situation. Cranial nerves II-XII grossly intact. Motor strength 5/5 in all extremities. Sensory grossly intact. Cerebellar exam normal. Normal gait. Psych: Awake, alert, with orientation to person, place and time. Behavior, mood, and affect are within normal limits. 23:48 Abdomen/GI: Inspection: obese Bowel sounds: normal, in all quadrants, Palpation: moderate abdominal tenderness, in the epigastric area, Rectal exam: the exam is deferred, because of patient request, Indicators: McBurney's point is not tender, Fleming's sign is negative, Rovsing's sign is negative, Obturator sign is negative, Psoas sign is negative, Liver: no appreciated palpable abnormalities, Hernia: not appreciated. Vital Signs: 23:05 BP 170 / 110; Pulse 107; Resp 20; Pulse Ox 99% on R/A; Weight 102.06 kg (R); Height 5 lp1 ft. 5 in. (165.10 cm); Pain 8/10; 0208 00:04 BP 172 / 115; Pulse 107; Resp 18; Pulse Ox 96% on R/A; zb 00:21 BP 172 / 111; Pulse 95; Resp 18; Pulse Ox 95% on R/A; mg2 00:50 BP 176 / 108; Pulse 92; Resp 18; Pulse Ox 96% on R/A; mg2 01:19 BP 168 / 108; mg2 02:54 Temp 97.9(O); mg2 03:36 BP 167 / 100; Pulse 92; Resp 18; Pulse Ox 97% on R/A; mg2 / 23:05 Body Mass Index 37.44 (102.06 kg, 165.10 cm) lp1 MDM: 03:45 Differential diagnosis: bowel obstruction, cholecystitis, Cholelithiasis, mh7 diverticulitis, gastritis, gastroesophageal reflux disease, non-specific abd pain, pancreatitis, Peptic Ulcer Disease, Ureterolithiasis, urinary tract infection. Data reviewed: vital signs, nurses notes, old medical records, lab test result(s), cardiac enzymes, CBC, electrolytes, urinalysis, EKG, radiologic studies, CT scan, plain films. Data interpreted: Pulse oximetry: on room air is 97 %. Interpretation: normal. Counseling: I had a detailed discussion with the patient and/or guardian regarding: the historical points, exam findings, and any diagnostic results supporting the discharge/admit diagnosis, the presence of at least one elevated blood pressure reading (>120/80) during this emergency department visit, lab results, radiology results, the need for outpatient follow up, to return to the emergency department if symptoms worsen or persist or if there are any questions or concerns that arise at home. Response to treatment: the patient's symptoms have resolved after treatment, the patient's blood pressure is in an acceptable range, mental status has returned to baseline, the patient no longer shows bradycardia, the patient is not short of breath, the patient is not tachycardic, the patient's pain is gone, the patient's temperature has normalized. 03:48 Patient medically screened. mh7 05/26 23:33 Order name: Basic Metabolic Panel zb 05/26 23:33 Order name: CBC with Diff zb 05/26 23:33 Order name: LFT's zb 05/26 23:33 Order name: Magnesium; Complete Time: 00:09 zb 05/26 23:33 Order name: NT PRO-BNP; Complete Time: 00:09 zb 05/26 23:33 Order name: PT-INR; Complete Time: 00:09 zb 05/26 23:33 Order name: Troponin (emerg Dept Use Only); Complete Time: 00:09 zb 05/26 23:33 Order name: XRAY Chest (1 view) zb 05/26 23:33 Order name: Lipase; Complete Time: 00:09 zb 05/26 23:34 Order name: Basic Metabolic Panel; Complete Time: 00:09 EDMS 05/26 23:34 Order name: CBC with Automated Diff; Complete Time: 00:09 EDMS 05/26 23:34 Order name: Liver (Hepatic) Function; Complete Time: 00:09 EDMS 05/27 01:50 Order name: Urine Dipstick--Ancillary (enter results); Complete Time: 03:40 tt3 05/27 02:52 Order name: Troponin (emerg Dept Use Only); Complete Time: 03:40 mg2 05/26 23:33 Order name: EKG; Complete Time: 23:34 zb 05/26 23:33 Order name: Cardiac monitoring; Complete Time: 23:33 zb 05/26 23:33 Order name: EKG - Nurse/Tech; Complete Time: 23:33 zb 05/26 23:33 Order name: IV Saline Lock; Complete Time: 23:33 zb 05/26 23:33 Order name: Labs collected and sent; Complete Time: 23:33 zb 05/26 23:33 Order name: O2 Per Protocol; Complete Time: 23:33 zb 05/26 23:33 Order name: O2 Sat Monitoring; Complete Time: 23:33 zb 05/26 23:33 Order name: Urine Dipstick-Ancillary (obtain specimen); Complete Time: 02:42 z 05/27 01:01 Order name: CT Abd/Pelvis - IV Contrast Only 7 Administered Medications: 05/26 23:53 Drug: morphine 4 mg Route: IVP; Site: right antecubital; b 05/27 00:49 Follow up: Response: No adverse reaction; Marked relief of symptoms; RASS: Alert and mg2 Calm (0) 05/26 23:53 Drug: Zofran (Ondansetron) 4 mg Route: IVP; Site: right antecubital; b 05/27 00:49 Follow up: Response: No adverse reaction mg2 05/26 23:54 Drug: NS 0.9% 1000 ml Route: IV; Rate: 1000 ml; Site: right antecubital; 05/27 00:50 Follow up: Response: No adverse reaction; IV Status: Completed infusion; IV Intake: mg2 1000ml 05/26 23:54 Drug: Pepcid 20 mg Route: IVP; Site: right antecubital; 05/27 00:49 Follow up: Response: No adverse reaction mg2 Disposition: 05/27/20 03:48 Discharged to Home. Impression: Upper abdominal pain, unspecified, Enteritis. - Condition is Stable. - Discharge Instructions: Abdominal Pain, Adult, Dhmg-in-Hdmg. - Prescriptions for Zofran ODT 4 mg Oral tablet,disintegrating - place 1 tablet by TRANSLINGUAL route every 8 hours As needed; 6 tablet. Bentyl 20 mg Oral Tablet - take 1 tablet by ORAL route every 6 hours As needed; 20 tablet. Pepcid 20 mg Oral Tablet - take 1 tablet by ORAL route every 12 hours for 5 days; 10 tablet. - Medication Reconciliation Form, Thank You Letter, Antibiotic Education, Prescription Opioid Use form. - Follow up: Private Physician; When: 1 - 2 days; Reason: Worsening of condition, Recheck today's complaints, Continuance of care, Re-evaluation by your physician. - Problem is new. - Symptoms have improved. Signatures: Dispatcher [employer] EDMS Nadia Martínez RN RN lp1 Adeel Skinner RN RN mg2 Tristan Sanders MD MD 7 Bhumika Sherman RN RN zb Corrections: (The following items were deleted from the chart) 03:57 03:48 05/27/2020 03:48 Discharged to Home. Impression: Upper abdominal pain, mg2 unspecified; Enteritis. Condition is Stable. Forms are Medication Reconciliation Form, Thank You Letter, Antibiotic Education, Prescription Opioid Use. Follow up: Private Physician; When: 1 - 2 days; Reason: Worsening of condition, Recheck today's complaints, Continuance of care, Re-evaluation by your physician. Problem is new. Symptoms have improved. mh7
--- NOTE | 2020-05-27 03:49 | ER ---
Nurse's Notes [facility] Name: Viktor Alatorre Sr Age: 44 yrs Sex: Male : 1975 Arrival Date: 05/26/2020 Time: 22:55 Bed 20 Private MD: Diagnosis: Upper abdominal pain, unspecified;Enteritis Presentation: 05/26 23:05 Chief complaint: Patient states: Reports sudden chest burning that began while laying lp1 down about 2200; States feeling faint, dizzy, shortness of breath. Coronavirus screen: Client denies travel out of the [place] in the last 14 days. At this time, the client does not indicate any symptoms associated with coronavirus-19. The client reports previous COVID testing was negative. Ebola Screen: No symptoms or risks identified at this time. Initial Sepsis Screen: Does the patient meet any 2 criteria? No. Patient's initial sepsis screen is negative. Does the patient have a suspected source of infection? No. Patient's initial sepsis screen is negative. Risk Assessment: Do you want to hurt yourself or someone else? Patient reports no desire to harm self or others. Onset of symptoms was May 26, 2020 at 22:00. 23:05 Method Of Arrival: Ambulatory lp1 23:05 Acuity: MITCH 3 lp1 Historical: - Allergies: 23:08 No Known Allergies; lp1 - Home Meds: 23:08 lisinopril-hydrochlorothiazide Oral [Active]; Lovastatin Oral [Active]; Metformin Oral lp1 [Active]; metoprolol tartrate 25 mg Oral tab 1 tab once daily [Active]; - PMHx: 23:08 Diabetes - NIDDM; High Cholesterol; Hypertension; lp1 - PSHx: 23:08 None; lp1 - Immunization history:: Adult Immunizations up to date. - Social history:: Smoking status: Patient denies any tobacco usage or history of. Screenin:08 Abuse screen: Denies threats or abuse. Denies injuries from another. Nutritional lp1 screening: No deficits noted. Tuberculosis screening: No symptoms or risk factors identified. 05/27 00:20 Fall Risk IV access (20 points). mg2 Assessment: 05/26 23:27 Reassessment: ECP at bedside. zb 23:40 General: Appears in no apparent distress. uncomfortable, Behavior is cooperative, zb appropriate for age, anxious. Pain: Complains of pain in epigastric area Pain does not radiate. Quality of pain is described as burning, Pain began 2 hours ago. Is continuous. Neuro: Level of Consciousness is awake, alert, obeys commands, Oriented to person, place, time, situation. Cardiovascular: Capillary refill < 3 seconds in bilateral fingers Patient's skin is warm and dry. Respiratory: Airway is patent Respiratory effort is even, unlabored, Respiratory pattern is regular, symmetrical. GI: Abdomen is round distended. : No signs and/or symptoms were reported regarding the genitourinary system. EENT: No signs and/or symptoms were reported regarding the EENT system. Derm: Skin is intact, is healthy with good turgor, Skin is dry, Skin is normal, Skin temperature is warm. Musculoskeletal: Circulation, motion, and sensation intact. Capillary refill < 3 seconds, in bilateral fingers. Range of motion: intact in all extremities. 05/27 00:06 Reassessment: notified ECP of patient high blood pressure. zb 00:19 Reassessment: Patient appears in no apparent distress at this time. Patient and/or mg2 family updated on plan of care and expected duration. Pain level reassessed. Patient is alert, oriented x 3, equal unlabored respirations, skin warm/dry/pink. 03:35 Reassessment: Patient appears in no apparent distress at this time. Patient and/or mg2 family updated on plan of care and expected duration. Pain level reassessed. Patient is alert, oriented x 3, equal unlabored respirations, skin warm/dry/pink. Patient denies pain at this time. Vital Signs: 05/26 23:05 BP 170 / 110; Pulse 107; Resp 20; Pulse Ox 99% on R/A; Weight 102.06 kg (R); Height 5 lp1 ft. 5 in. (165.10 cm); Pain 8/10; 05/27 00:04 BP 172 / 115; Pulse 107; Resp 18; Pulse Ox 96% on R/A; zb 00:21 BP 172 / 111; Pulse 95; Resp 18; Pulse Ox 95% on R/A; mg2 00:50 BP 176 / 108; Pulse 92; Resp 18; Pulse Ox 96% on R/A; mg2 01:19 BP 168 / 108; mg2 02:54 Temp 97.9(O); mg2 03:36 BP 167 / 100; Pulse 92; Resp 18; Pulse Ox 97% on R/A; mg2 05/26 23:05 Body Mass Index 37.44 (102.06 kg, 165.10 cm) lp1 ED Course: 05/26 22:55 Patient arrived in ED. am4 23:06 Tristan Sanders MD is Attending Physician. 7 23:07 Triage completed. lp1 23:08 Patient maintains SpO2 saturation greater than 95% on room air. lp1 23:08 Arm band placed on right wrist. lp1 23:27 Inserted saline lock: 20 gauge in right antecubital area, using aseptic technique. zb Blood collected. 23:27 Patient has correct armband on for positive identification. Placed in gown. Bed in low zb position. Call light in reach. Side rails up X 1. media monitor on. Pulse ox on. NIBP on. Door closed. Noise minimized. Warm blanket given. 23:53 Bhumika Sherman RN is Primary Nurse. zb 02 00:52 No provider procedures requiring assistance completed. mg2 00:55 XRAY Chest (1 view) In Process Unspecified. EDMS 02:04 CT Abd/Pelvis - IV Contrast Only In Process Unspecified. EDMS 03:57 IV discontinued, intact, bleeding controlled, No redness/swelling at site. Pressure mg2 dressing applied. Administered Medications: 05/26 23:53 Drug: morphine 4 mg Route: IVP; Site: right antecubital; zb 05/27 00:49 Follow up: Response: No adverse reaction; Marked relief of symptoms; RASS: Alert and mg2 Calm (0) 05/26 23:53 Drug: Zofran (Ondansetron) 4 mg Route: IVP; Site: right antecubital; zb 05/27 00:49 Follow up: Response: No adverse reaction mg2 05/26 23:54 Drug: NS 0.9% 1000 ml Route: IV; Rate: 1000 ml; Site: right antecubital; zb 05/27 00:50 Follow up: Response: No adverse reaction; IV Status: Completed infusion; IV Intake: mg2 1000ml 05/26 23:54 Drug: Pepcid 20 mg Route: IVP; Site: right antecubital; zb 05/27 00:49 Follow up: Response: No adverse reaction mg2 Intake: 00:50 IV: 1000ml; Total: 1000ml. mg2 Outcome: 03:48 Discharge ordered by . dhruv 03:57 Discharged to home ambulatory. mg2 03:57 Condition: good 03:57 Discharge instructions given to patient, Instructed on discharge instructions, follow up and referral plans. medication usage, Demonstrated understanding of instructions, follow-up care, medications, Prescriptions given X 3. 03:57 Patient left the ED. mg2 Signatures: Dispatcher [employer] EDMS Nadia Martínez RN RN lp1 Adeel Skinner RN RN mg2 Tristan Sanders MD MD [id number] Brown, Zipporah, RN RN zb Martinez, Ashley am4
[2020-05-27 04:08] VITALS: TEMP 97.9
[2020-05-27 04:09] VITALS: BP 167/100; O2SAT 97
--- NOTE | 2020-05-27 08:28 | RAD REPORT ---
EXAM DESCRIPTION: RAD - Chest Single View - 05/27/2020 12:54 am CLINICAL HISTORY: CHEST PAIN Chest pain. COMPARISON: Chest Single View dated 02/17/2020; Chest Single View dated 01/05/2019; Chest Single View dated 09/15/2017; Chest Single View dated 08/26/2016 FINDINGS: Portable technique limits examination quality. The lungs are grossly clear. The heart is normal in size. No displaced fractures. IMPRESSION: No acute intrathoracic process suspected.
--- NOTE | 2020-05-27 12:25 | RAD REPORT ---
EXAM DESCRIPTION: CT ABDOMEN AND PELVIS WITH CONTRAST CLINICAL HISTORY: ABD PAIN COMPARISON: None Available. TECHNIQUE: CT of the abdomen and pelvis performed following IV administration of iodinated. FINDINGS: Lung Bases: The visualized lung bases are clear. Bones: Bilateral L5 pars defects with grade 1 spondylolisthesis. Mild multilevel endplate spondylosis and facet arthropathy. Abdomen: Liver: The liver has normal size and decreased density. No intrahepatic biliary dilatation. Gallbladder: No calcified gallstones. Spleen, Pancreas, and Adrenal Glands: The spleen, pancreas, and adrenal glands are unremarkable. Kidneys: No hydronephrosis or obstructing calculus. Nonobstructing bilateral nephrolithiasis. Vasculature: Aortoiliac atherosclerosis. IVC is unremarkable. The portal vein is patent. The proxim al visceral and renal arteries are patent. Stomach: The stomach and duodenum have normal course. Other: No free intraperitoneal air. No free fluid or lymphadenopathy. Pelvis: Bladder: Urinary bladder is unremarkable. Bowel: No dilated loops of large or small bowel. Scattered diverticula of the colon. Mild wall thic kening of small bowel in the mid abdomen. Appendix: Normal appendix. Pelvis: Tiny fat-containing bilateral inguinal hernias, greater on the left than the right. Prostate is not enlarged. IMPRESSION: 1. Mild wall thickening of loops of small bowel in the mid abdomen. These findings could be seen with mild nonspecific enteritis of infectious or inflammatory etiology. 2. Bilateral nonobstructing nephrolithiasis. 3. Hepatic steatosis. 4. Diverticulosis without evidence of acute diverticulitis. This exam was performed according to our departmental dose-optimization program, which includes autom ated exposure control, adjustment of the mA and/or kV according to patient size and/or use of iterati ve reconstruction technique. Electronically signed by: Yordy Murguia 05/27/2020 2:27 AM [employer] Due to temporary technical issues with the PACS/Fluency reporting system, reports are being signed by the in house radiologist without review as a courtesy to ensure prompt reporting. The interpreting r adiologist is fully responsible for the content of the report.
== END 2020-05-27 03:57 | disposition home or self-care (01) ==
LOC: ER 22:43
DX: K52.9 Noninfective gastroenteritis and colitis, unspecified (principal); E11.9 Type 2 diabetes mellitus without complications; Z79.84 Long term (current) use of oral hypoglycemic drugs; E78.00 Pure hypercholesterolemia, unspecified; I10 Essential (primary) hypertension
CPT/HCPCS: 36415; 71045; 74177; 80048; 80076; 81003; 83690; 83735; 83880; 84484; 85025; 85610; 93005; 96361; 96374; 96375; 99285; Q9967